=== PATIENT | male | born 1985 | race Caucasian/White ===

== ENCOUNTER 2017-08-06 10:58 | Emergency (ER) | payer OTHER ==
[2017-08-06] MEDS ORDERED: NS 1,000 ML IV ONE ×3 (11:15→11:49)
[2017-08-06] MEDS ORDERED: ONDANSETRON 4 MG/2 ML VIAL IVP ONE (11:15)
--- NOTE | 2017-08-06 11:18 | EDPHY ---
H & P Time Seen by Provider: 08/06/17 11:18 HPI/ROS: Chief complaint. Abdominal pain HPI. 31-year-old male history of Crohn's presents with nausea vomiting diarrhea and abdominal pain for 2 days. His last Crohn's flare-up was 18 months ago. He is not on any medication. He has periumbilical crampy type pain. No radiation. No urinary symptoms other than decreased urination. No chest discomfort or shortness of breath. No fever. No blood in the stool ROS Constitutional. no fever/chills, no weakness Eyes. no problems with vision ENT. no sore throat, no nasal drainage Cardiovascular. no chest pain Respiratory. no shortness of breath, no cough Abdominal. Crampy mid abdominal pain with nausea vomiting and diarrhea . no problems urinating MS. no calf pain/swelling, no neck/back pain, no joint pain Skin. no rash Lymph. no swollen glands Neuro. no headache, no dizziness, no difficulty walking or with speech Past Medical/Surgical History: Crohn's disease, anxiety, TBI, appendectomy Social History: Single, nonsmoker, no alcohol Smoking Status: Current every day smoker Constitutional: Initial Vital Signs Temperature (C) 36.6 C 08/06/17 11:01 Heart Rate 84 08/06/17 11:01 Respiratory Rate 17 08/06/17 11:01 Blood Pressure 112/75 08/06/17 11:01 O2 Sat (%) 93 08/06/17 11:01 O2 Delivery Mode Room Air Allergies/Adverse Reactions: No Known Allergies Allergy (Verified 08/06/17 11:00) Home Medications: Medication Instructions Recorded Ondansetron Odt [Zofran Odt] 4 mg PO Q4PRN PRN #4 tab 08/06/17 Medical Decision Making Procedures: IV normal saline Patient is given 2 L of saline Dilaudid and Zofran IV ED Course/Re-evaluation: Re-evaluation 12:55 p.m.. Patient is stable and feeling much better. He and I discussed laboratory evaluation, treatment plan including criteria for return, importance of follow-up and further evaluation. He expresses understanding and agreement He has had 2 L of saline no further vomiting or diarrhea. He is taking oral ice chips and feels much better. Differential Diagnosis: This may well be gastroenteritis. No evidence of active infection or acute abdomen. It is possible certainly that this could be Crohn's disease. After hydration and medication patient is improved - Data Points Laboratory Results: Laboratory Results 08/06/17 11:24 08/06/17 11:24 08/06/17 08/06/17 11:24 11:24 WBC 6.25 10^3/uL 10^3/uL (3.80-9.50) RBC 5.20 10^6/uL 10^6/uL (4.40-6.38) Hgb 17.0 g/dL g/dL (13.7-17.5) Hct 47.0 % % (40.0-51.0) MCV 90.4 fL fL (81.5-99.8) MCH 32.7 pg pg (27.9-34.1) MCHC 36.2 g/dL g/dL (32.4-36.7) RDW 13.2 % % (11.5-15.2) Plt Count 263 10^3/uL 10^3/uL (150-400) MPV 9.8 fL fL (8.7-11.7) Neut % (Auto) 53.4 % % (39.3-74.2) Lymph % (Auto) 36.8 % % (15.0-45.0) [place] % (Auto) 7.8 % % (4.5-13.0) Eos % (Auto) 1.0 % % (0.6-7.6) Baso % (Auto) 0.8 % % (0.3-1.7) Nucleat RBC Rel Count 0.0 % % (0.0-0.2) Absolute Neuts (auto) 3.34 10^3/uL 10^3/uL (1.70-6.50) Absolute Lymphs (auto) 2.30 10^3/uL 10^3/uL (1.00-3.00) Absolute Monos (auto) 0.49 10^3/uL 10^3/uL (0.30-0.80) Absolute Eos (auto) 0.06 10^3/uL 10^3/uL (0.03-0.40) Absolute Basos (auto) 0.05 10^3/uL 10^3/uL (0.02-0.10) Absolute Nucleated RBC 0.00 10^3/uL 10^3/uL (0-0.01) Immature Gran % 0.2 % % (0.0-1.1) Immature Gran # 0.01 10^3/uL 10^3/uL (0.00-0.10) Sodium 142 mEq/L mEq/L (135-145) Potassium 3.6 mEq/L mEq/L (3.3-5.0) Chloride 104 mEq/L mEq/L (97-110) Carbon Dioxide 25 mEq/l mEq/l (22-31) Anion Gap 13 mEq/L mEq/L (8-16) BUN 15 mg/dL mg/dL (7-23) Creatinine 0.9 mg/dL mg/dL (0.7-1.3) Estimated GFR > 60 Glucose 87 mg/dL mg/dL (70-100) Calcium 9.4 mg/dL mg/dL (8.5-10.4) Medications Given: Discontinued Medications Hydromorphone HCl (Dilaudid) 1 mg IVP EDNOW ONE Stop: 08/06/17 11:50 Last Admin: 08/06/17 11:58 Dose: 1 mg Sodium Chloride (Ns) 1,000 mls @ 0 mls/hr IV ONCE ONE PRN Reason: Wide Open Stop: 08/06/17 11:16 Last Admin: 08/06/17 11:29 Dose: 1,000 mls Sodium Chloride (Ns) 1,000 mls @ 0 mls/hr IV EDNOW ONE; Wide Open PRN Reason: Protocol Stop: 08/06/17 11:50 Last Admin: 08/06/17 11:58 Dose: Not Given Sodium Chloride (Ns) 1,000 mls @ 0 mls/hr IV EDNOW ONE; Wide Open PRN Reason: Protocol Stop: 08/06/17 11:50 Last Admin: 08/06/17 11:57 Dose: 1,000 mls Ondansetron HCl (Zofran) 4 mg IVP EDNOW ONE Stop: 08/06/17 11:16 Last Admin: 08/06/17 11:29 Dose: 4 mg Departure - Departure Disposition: Home, Routine, Self-Care Clinical Impression: Abdominal pain Qualifiers: Abdominal location: periumbilical Qualified Code(s): R10.33 - Periumbilical pain Condition: Good Instructions: Abdominal Pain (ED) Additional Instructions: Frequent, small sips fluids well nauseated. Gradual diet advancement. Zofran as needed for nausea and vomiting. Return for worsening symptoms. Recheck in 2 days if not continuing to improve Referrals: NONE *PRIMARY CARE P,. [Primary Care Provider] - As per Instructions Ja Quezada MD [Medical Doctor] - 2-3 days, if not improved Prescriptions: Ondansetron Odt [Zofran Odt] 4 mg PO Q4PRN PRN #4 tab PRN Reason: Nausea/Vomiting, Use 1st
[2017-08-06 11:43] LABS: PLATELET COUNT 263 10^3/uL (150-400)
[2017-08-06] MEDS ORDERED: HYDROmorphONE/DILAUDID 2 MG/ML INJ IVP ONE (11:49)
[2017-08-06] MEDS ORDERED: HYDROmorphONE/DILAUDID 1 MG/ML INJ ONE (11:56)
[2017-08-06 13:05] VITALS: BP 111/66
== END 2017-08-06 13:08 | disposition home or self-care (01) ==
DX: R10.33 Periumbilical pain (principal); F17.200 Nicotine dependence, unspecified, uncomplicated; E86.9 Volume depletion, unspecified; Z90.49 Acquired absence of other specified parts of digestive tract
CPT/HCPCS: 96374; J1170; J2405

== ENCOUNTER 2017-09-30 15:15 | Emergency (ER) | payer OTHER ==
[2017-09-30] MEDS ORDERED: NS 1,000 ML IV ONE (15:25)
[2017-09-30] MEDS ORDERED: fentaNYL 100 MCG/2 ML INJ IVP ONE (15:31)
[2017-09-30] MEDS ORDERED: ONDANSETRON 4 MG/2 ML VIAL IVP ONE (15:31)
--- NOTE | 2017-09-30 15:45 | EDPHY ---
General Time Seen by Provider: 09/30/17 15:36 Narrative: CHIEF COMPLAINT: Abdominal pain, Crohn's flare HISTORY OF PRESENT ILLNESS: Patient presents with complaints of abdominal pain. It is severe. Started suddenly this morning at 4:00 a.m.. Right lower quadrant and lower portion of the abdomen. Feels exactly like his previous incidence of a Crohn's exacerbation. Nausea and 1 episode of vomiting. No bloody emesis. No bloody stools. No trauma or injury. No previous abdominal surgery but does have recurrent flares of Crohn's. He is not on any anticoagulants, steroids or De margins. No other associated complaints or modifying factors. REVIEW OF SYSTEMS: Ten systems reviewed and are negative unless otherwise noted in the HPI [facility] PAST MEDICAL HISTORY: Crohn's, TBI PAST SURGICAL HISTORY: No abdominal surgeries SOCIAL HISTORY: Nonsmoker. Retired from the . FAMILY HISTORY: Noncontributory EXAMINATION General Appearance: Alert, no distress. Well-developed well-nourished. Head: normocephalic, atraumatic Eyes: Pupils equal and round, no conjunctival pallor or injection ENT, Mouth: Mucous membranes moist Neck: Normal inspection, supple, non-tender Respiratory: Lungs are clear to auscultation Cardiovascular: Regular rate and rhythm Gastrointestinal: Abdomen is soft and nondistended. There are bowel sounds in all 4 quadrants. There is significant tenderness in the suprapubic right lower quadrant with guarding. There is no tympany rigidity. No CVA tenderness. Back: non-tender, no bony abnormalities Neurological: A&O, nonfocal, normal gait Skin: Warm and dry, no rash. No petechiae or purpura Extremities: Nontender, no pedal edema Psychiatric: Mood and affect normal DIFFERENTIAL DIAGNOSES: Including but not limited to Crohn's exacerbation, diverticulitis, colitis, pneumoperitoneum, abscess MDM: 3:45 p.m. Acute abdominal pain with symptoms that are similar to his previous episodes of a Crohn exacerbation. He has nausea but no vomiting. He has no bloody stools or emesis. He has normal vital signs without any evidence of SIRS. He is in pain but in no acute distress. He requests that we do not performing CT imaging at this time. Will continue medication and laboratory studies prior. 4:00 p.m. Patient re-evaluated. His pain is refractory to the fentanyl this but he administered. IV Dilaudid ordered. 4:15 p.m. Patient re-evaluated. He says that his pain is significantly improved. He says that he does not want any CT imaging at this time as he feels much better. 4:40 p.m. Patient re-evaluated. He states he is feeling significantly better has minimal pain at this time. I did offer admission and further imaging by CT scan he declines. He states he would like to go home. We discussed risks, benefits and alternatives. This includes worsening of pain, deterioration, missed appendicitis, abscess, diverticulitis or colitis. I do feel it is reasonable for the patient home at this time with ED precautions. This includes return of pain, fever, vomiting, bloody stools or emesis. He will contact his established care at the [facility]. I have also provided the on-call physicians. Discharged home stable condition. SUPERVISION: Patient was independently examined, but I discussed the case with my secondary supervising physician Dr. Lucas - History Smoking Status: Current every day smoker - Objective Vital Signs: Initial Vital Signs Temperature (C) 98.8 F 09/30/17 15:17 Heart Rate 92 09/30/17 15:17 Respiratory Rate 18 09/30/17 15:17 Blood Pressure 132/107 H 09/30/17 15:17 O2 Sat (%) 98 09/30/17 15:17 O2 Delivery Mode Nasal Cannula O2 (L/minute) 3 Allergies/Adverse Reactions: No Known Allergies Allergy (Verified 09/30/17 15:16) Home Medications: Medication Instructions Recorded Ondansetron Odt [Zofran Odt 4 mg 4 mg PO Q6 PRN #12 tab 09/30/17 (*)] oxyCODONE HCL/ACETAMINOPHEN 1 each PO Q4-6PRN PRN #7 tablet 09/30/17 [Percocet 5-325 mg Tablet] Laboratory Results: Laboratory Results 09/30/17 15:29 09/30/17 15:29 09/30/17 09/30/17 15:29 15:29 WBC 12.21 10^3/uL H 10^3/uL (3.80-9.50) RBC 5.10 10^6/uL 10^6/uL (4.40-6.38) Hgb 16.8 g/dL g/dL (13.7-17.5) Hct 46.5 % % (40.0-51.0) MCV 91.2 fL fL (81.5-99.8) MCH 32.9 pg pg (27.9-34.1) MCHC 36.1 g/dL g/dL (32.4-36.7) RDW 12.6 % % (11.5-15.2) Plt Count 322 10^3/uL 10^3/uL (150-400) MPV 9.9 fL fL (8.7-11.7) Neut % (Auto) 92.5 % H % (39.3-74.2) Lymph % (Auto) 5.2 % L % (15.0-45.0) [place] % (Auto) 2.0 % L % (4.5-13.0) Eos % (Auto) 0.0 % L % (0.6-7.6) Baso % (Auto) 0.1 % L % (0.3-1.7) Nucleat RBC Rel Count 0.0 % % (0.0-0.2) Absolute Neuts (auto) 11.30 10^3/uL H 10^3/uL (1.70-6.50) Absolute Lymphs (auto) 0.63 10^3/uL L 10^3/uL (1.00-3.00) Absolute Monos (auto) 0.24 10^3/uL L 10^3/uL (0.30-0.80) Absolute Eos (auto) 0.00 10^3/uL L 10^3/uL (0.03-0.40) Absolute Basos (auto) 0.01 10^3/uL L 10^3/uL (0.02-0.10) Absolute Nucleated RBC 0.00 10^3/uL 10^3/uL (0-0.01) Immature Gran % 0.2 % % (0.0-1.1) Immature Gran # 0.03 10^3/uL 10^3/uL (0.00-0.10) Sodium 139 mEq/L mEq/L (135-145) Potassium 4.3 mEq/L mEq/L (3.3-5.0) Chloride 107 mEq/L mEq/L (97-110) Carbon Dioxide 21 mEq/l L mEq/l (22-31) Anion Gap 11 mEq/L mEq/L (8-16) BUN 13 mg/dL mg/dL (7-23) Creatinine 0.8 mg/dL mg/dL (0.7-1.3) Estimated GFR > 60 Glucose 133 mg/dL H mg/dL (70-100) Calcium 10.6 mg/dL H mg/dL (8.5-10.4) Total Bilirubin 1.2 mg/dL mg/dL (0.1-1.4) Conjugated Bilirubin 0.2 mg/dL mg/dL (0.0-0.5) Unconjugated Bilirubin 1.0 mg/dL mg/dL (0.0-1.1) AST 27 IU/L IU/L (17-59) ALT 50 IU/L IU/L (21-72) Alkaline Phosphatase 115 IU/L IU/L (38-126) Total Protein 8.0 g/dL g/dL (6.3-8.2) Albumin 4.9 g/dL g/dL (3.5-5.0) Lipase 69 IU/L IU/L (23-300) Medications Given: Discontinued Medications Fentanyl (Sublimaze) 100 mcg IVP EDNOW ONE Stop: 09/30/17 15:32 Last Admin: 09/30/17 15:35 Dose: 100 mcg Hydromorphone HCl (Dilaudid) 1 mg IVP EDNOW ONE Stop: 09/30/17 16:01 Last Admin: 09/30/17 16:05 Dose: 1 mg Sodium Chloride (Ns) 1,000 mls @ 0 mls/hr IV ONCE ONE; Wide Open PRN Reason: Protocol Stop: 09/30/17 15:26 Last Admin: 09/30/17 15:29 Dose: 1,000 mls Ondansetron HCl (Zofran) 4 mg IVP EDNOW ONE Stop: 09/30/17 15:32 Last Admin: 09/30/17 15:35 Dose: 4 mg Departure - Departure Disposition: Home, Routine, Self-Care Clinical Impression: Acute abdominal pain Exacerbation of Crohn's disease Qualifiers: Digestive disease complication type: without complication Qualified Code(s): K50.90 - Crohn's disease, unspecified, without complications Condition: Good Instructions: Acute Abdominal Pain (ED), Crohn Disease (ED) Additional Instructions: 1. Medications as prescribed as needed for pain and nausea 2. Clear liquid diet, advance slowly as tolerated 3. ED precautions for return of pain, fever, vomiting, bloody stools or emesis. 4. Return to emergency department in 24 hr if you do not have complete resolution of your pain Referrals: Jj Camp MD [Medical Doctor] - As per Instructions Ja Quezada MD [Medical Doctor] - As per Instructions Stand Alone Forms: Work Excuse Prescriptions: Ondansetron Odt [Zofran Odt 4 mg (*)] 4 mg PO Q6 PRN #12 tab PRN Reason: Nausea/Vomiting, Use 1st oxyCODONE HCL/ACETAMINOPHEN [Percocet 5-325 mg Tablet] 1 each PO Q4-6PRN PRN #7 tablet PRN Reason: Pain, Breakthrough
[2017-09-30 15:46] LABS: PLATELET COUNT 322 10^3/uL (150-400)
[2017-09-30] MEDS ORDERED: HYDROmorphONE/DILAUDID 2 MG/ML INJ IVP ONE (16:00)
[2017-09-30 16:35] VITALS: BP 114/80
== END 2017-09-30 17:08 | disposition home or self-care (01) ==
DX: K50.90 Crohn's disease, unspecified, without complications (principal)
CPT/HCPCS: 96374; J1170; J2405; J3010

== ENCOUNTER 2017-12-01 13:37 | Emergency (ER) | payer OTHER ==
[2017-12-01] MEDS ORDERED: NS 1,000 ML IV ONE ×2 (14:17→14:23)
[2017-12-01] MEDS ORDERED: HALOPERIDOL LACT 5 MG/ML INJ IVP ONE (14:23)
[2017-12-01] MEDS ORDERED: KETAMINE 200 MG/20 ML VIAL IVP ONE (14:23)
--- NOTE | 2017-12-01 14:23 | EDPHY ---
H & P Stated Complaint: HX CROHNS/N/V Time Seen by Provider: 12/01/17 14:16 HPI/ROS: CHIEF COMPLAINT: "My Crohn's is flared up" HISTORY OF PRESENT ILLNESS: 32-year-old male followed at the [facility], history of Crohn's disease, remote history of appendectomy, via private vehicle complaining of right-sided abdominal pain for the past 24 hr with associated nausea, vomiting. No hematemesis. No coffee- ground emesis. Bowel movements normal with no melena or hematochezia. No abdominal or other trauma. He is awaiting scheduling for upper and lower endoscopy. No testicular pain. No urinary abnormality PRIMARY CARE PROVIDER:[facility] REVIEW OF SYSTEMS: 10 systems reviewed and negative with the exception of the elements mentioned in the history of present illness PAST MEDICAL & SURGICAL HISTORY: Crohn's disease. Appendectomy. SOCIAL HISTORY: Retired nonsmoker PHYSICAL EXAM (Prior to examination, patient consented to physical exam, hands were washed and my usual and customary physical exam procedures followed) 1) GENERAL: Well-developed, well-nourished, alert and oriented. Appears comfortable s. 2) HEAD: Normocephalic, atraumatic 3) HEENT: Pupils equal, round, reactive to light bilaterally. Sclera anicteric. Nasopharynx, oropharynx, clear, no lesions. Dry mucous membranes. 4) NECK: Full range of motion, no meningeal signs. 5) LUNGS: Clear auscultation bilaterally, no wheezes, no rhonchi, no retractions. 6) HEART: Regular rate and rhythm, no murmur, no heave, no gallop. 7) ABDOMEN: No guarding, tender to palpation right upper quadrant, negative Bourgeois's sign, negative McBurney's, negative Bourgeois's, negative Rovsing's, negative peritoneal sign, 8) MUSCULOSKELETAL: Moving all extremities, no focal areas of tenderness, no obvious trauma. No peripheral edema or discoloration. 9) BACK: No CVA tenderness, no midline vertebral tenderness, no fluctuance, no step-off, no obvious trauma, no visual or palpable abnormality. 10) SKIN: No rash, no petechiae. 11) Psychiatric: Patient is oriented X 3, there is no agitation. DIFFERENTIAL DIAGNOSIS: My differential diagnosis includes, but is not limited to, acute appendicitis, acute cholecystitis, bowel obstruction, acute pancreatitis, testicular torsion, gastritis and urinary tract infection. The patient understands that this diagnosis is provisional and can never be 100% accurate. This is a partial list of diagnoses considered. These considerations are based on history, physical exam, past history and reassessment. - Personal History Current Tetanus Diphtheria and Acellular Pertussis (TDAP): Yes - Medical/Surgical History Hx Asthma: No Hx Chronic Respiratory Disease: No Hx Diabetes: No Hx Cardiac Disease: No Hx Renal Disease: No Hx Cirrhosis: No Hx Alcoholism: No Hx HIV/AIDS: No Hx Splenectomy or Spleen Trauma: No Other PMH: Appendectomy,. TBI. anxiety. Crohns - Social History Smoking Status: Current every day smoker Constitutional: Initial Vital Signs Temperature (C) 37.4 C 12/01/17 13:44 Heart Rate 105 H 12/01/17 13:44 Respiratory Rate 22 H 12/01/17 13:44 Blood Pressure 140/89 H 12/01/17 13:44 O2 Sat (%) 99 12/01/17 13:44 O2 Delivery Mode Room Air Allergies/Adverse Reactions: No Known Allergies Allergy (Verified 12/01/17 13:43) Home Medications: Medication Instructions Recorded NK [No Known Home Meds] 12/01/17 Medical Decision Making ED Course/Re-evaluation: 2:22 p.m.: I reviewed the patient's old medical records. Will obtain diagnostic studies, administer alternatives to opioids. I saw this patient independently based on established practice protocols. Care of patient under supervision of secondary supervising physician Dr Cosme . 3:30 p.m.: Re-evaluation, sleeping. IV Haldol and ketamine have been administered. 3:44 p.m.: Re-evaluation, sleeping, easily woken, states that he is feeling "100% better" . He would like to be discharged. Re-examined abdomen which is soft no guarding no rebound. I think that acute surgical abdominal pathology is less than likely in this patient at this time. Doubt acute cholecystitis. I do not think that imaging studies are indicated at this time. Given my usual and customary abdominal precautions and instructions. Recommend he follow up at the [facility]. - Data Points Laboratory Results: Laboratory Results 12/01/17 14:20 12/01/17 14:20 12/01/17 12/01/17 14:20 14:20 WBC 9.66 10^3/uL H 10^3/uL (3.80-9.50) RBC 5.29 10^6/uL 10^6/uL (4.40-6.38) Hgb 17.5 g/dL g/dL (13.7-17.5) Hct 48.0 % % (40.0-51.0) MCV 90.7 fL fL (81.5-99.8) MCH 33.1 pg pg (27.9-34.1) MCHC 36.5 g/dL g/dL (32.4-36.7) RDW 13.0 % % (11.5-15.2) Plt Count 398 10^3/uL 10^3/uL (150-400) MPV 9.7 fL fL (8.7-11.7) Neut % (Auto) 85.2 % H % (39.3-74.2) Lymph % (Auto) 9.0 % L % (15.0-45.0) [place] % (Auto) 5.4 % % (4.5-13.0) Eos % (Auto) 0.0 % L % (0.6-7.6) Baso % (Auto) 0.1 % L % (0.3-1.7) Nucleat RBC Rel Count 0.0 % % (0.0-0.2) Absolute Neuts (auto) 8.23 10^3/uL H 10^3/uL (1.70-6.50) Absolute Lymphs (auto) 0.87 10^3/uL L 10^3/uL (1.00-3.00) Absolute Monos (auto) 0.52 10^3/uL 10^3/uL (0.30-0.80) Absolute Eos (auto) 0.00 10^3/uL L 10^3/uL (0.03-0.40) Absolute Basos (auto) 0.01 10^3/uL L 10^3/uL (0.02-0.10) Absolute Nucleated RBC 0.00 10^3/uL 10^3/uL (0-0.01) Immature Gran % 0.3 % % (0.0-1.1) Immature Gran # 0.03 10^3/uL 10^3/uL (0.00-0.10) Sodium 141 mEq/L mEq/L (135-145) Potassium 4.1 mEq/L mEq/L (3.3-5.0) Chloride 102 mEq/L mEq/L (97-110) Carbon Dioxide 21 mEq/l L mEq/l (22-31) Anion Gap 18 mEq/L H mEq/L (8-16) BUN 18 mg/dL mg/dL (7-23) Creatinine 0.9 mg/dL mg/dL (0.7-1.3) Estimated GFR > 60 Glucose 130 mg/dL H mg/dL (70-100) Calcium 11.1 mg/dL H mg/dL (8.5-10.4) Phosphorus 3.2 mg/dL mg/dL (2.5-4.5) Total Bilirubin 1.2 mg/dL mg/dL (0.1-1.4) Conjugated Bilirubin 0.3 mg/dL mg/dL (0.0-0.5) Unconjugated Bilirubin 0.9 mg/dL mg/dL (0.0-1.1) AST 19 IU/L IU/L (17-59) ALT 36 IU/L IU/L (21-72) Alkaline Phosphatase 102 IU/L IU/L (38-126) Total Protein 8.5 g/dL H g/dL (6.3-8.2) Albumin 5.2 g/dL H g/dL (3.5-5.0) Lipase 52 IU/L IU/L (23-300) Medications Given: Discontinued Medications Haloperidol Lactate (Haldol Injection) 2.5 mg IVP EDNOW ONE Stop: 12/01/17 14:24 Last Admin: 12/01/17 14:34 Dose: 2.5 mg Sodium Chloride (Ns) 1,000 mls @ 0 mls/hr IV ONCE ONE PRN Reason: Wide Open Stop: 12/01/17 14:18 Last Admin: 12/01/17 14:34 Dose: 1,000 mls Sodium Chloride (Ns) 1,000 mls @ 0 mls/hr IV ONCE ONE PRN Reason: Wide Open Stop: 09/30/18 14:24 Last Admin: 12/01/17 15:20 Dose: 1,000 mls Ketamine HCl (Ketamine) 15 mg IVP EDNOW ONE Stop: 12/01/17 14:24 Last Admin: 12/01/17 14:34 Dose: 15 mg Departure - Departure Disposition: Home, Routine, Self-Care Clinical Impression: Crohns disease Qualifiers: Gastrointestinal tract location: unspecified location Digestive disease complication type: without complication Qualified Code(s): K50.90 - Crohn's disease, unspecified, without complications Abdominal pain Qualifiers: Abdominal location: right upper quadrant Qualified Code(s): R10.11 - Right upper quadrant pain Condition: Good Instructions: Crohn Disease (ED), Acute Abdominal Pain (ED) Additional Instructions: Seek immediate medical attention if you develop new or worsening symptoms, if you develop fevers, chills, inability to tolerate oral intake or any other symptoms that concerns you. Referrals: Follow-up, at the [facility] [Other] - 2-3 days, call for appt.
[2017-12-01 14:31] LABS: PLATELET COUNT 398 10^3/uL (150-400)
[2017-12-01 16:04] VITALS: BP 101/64
== END 2017-12-01 16:03 | disposition home or self-care (01) ==
DX: K50.90 Crohn's disease, unspecified, without complications (principal); Z87.891 Personal history of nicotine dependence
CPT/HCPCS: 96374; J1630

== ENCOUNTER 2017-12-03 08:22 | Emergency (ER) | payer OTHER ==
[2017-12-03 09:40] LABS: PLATELET COUNT 319 10^3/uL (150-400)
--- NOTE | 2017-12-03 09:52 | EDPHY ---
General Time Seen by Provider: 12/03/17 09:48 Narrative: CHIEF COMPLAINT: Abdominal pain, Crohn's flare HISTORY OF PRESENT ILLNESS: Patient presents by private vehicle with complaints of abdominal pain and Crohn' s flare. He states that he has had abdominal pain since December 01, at which time he was evaluated here. He was feeling better at time of discharge, with the symptoms return late last night. Pain is periumbilical. It is severe , constant and 10/10. It is the same as previous Crohn's flare pain. Associated with nausea. No constipation. No diarrhea. No bloody stools. No history of abdominal surgery for this. He states his cares at the [facility] including GI. He reports CT scan several weeks ago. He reports pending further evaluation for preventive medication for this but no current therapy. No other associated complaints or modifying factors REVIEW OF SYSTEMS: 10 systems were reviewed and negative with the exception of the elements mentioned in the history of present illness. PCP: [facility] SPECIALISTS: [facility] PAST MEDICAL HISTORY: Crohn's PAST SURGICAL HISTORY: No abdominal surgical history SOCIAL HISTORY: Nonsmoker. Lives independently FAMILY HISTORY: Noncontributory EXAMINATION: General Appearance: Alert, no distress. Appears to be in discomfort. Conversing in full sentences. Head: normocephalic, atraumatic Eyes: Pupils equal and round, no conjunctival pallor or injection ENT, Mouth: Mucous membranes moist Neck: Normal inspection, supple, non-tender Respiratory: Lungs are clear to auscultation Cardiovascular: Regular rate and rhythm Gastrointestinal: Abdomen is soft and nondistended. There is tenderness in the periumbilical region. There is tenderness in the upper quadrants. No lower quadrant tenderness. No guarding. No tympany. No rigidity. No CVA tenderness. Bowel sounds are present. Back: non-tender, no bony abnormalities Neurological: A&O, nonfocal, normal gait Skin: Warm and dry, no rash Extremities: Nontender, no pedal edema Psychiatric: Mood and affect normal DIFFERENTIAL DIAGNOSES: Including but not limited to Crohn's exacerbation, colitis, diverticulitis, cholecystitis, cholelithiasis, pancreatitis, enteritis, appendicitis MDM: 9:50 a.m. Abdominal pain in a patient with stated history of Crohn's disease. I have evaluated this patient in the past and familiar with his care. He does appear to be in pain but has a nonsurgical abdominal examination at this time. I have ordered IV ketamine, IV promethazine IV Toradol as his renal function is within normal limits. He also has IV fluid ordered and I will re-evaluate shortly. 10:15 a.m. Lipase and liver function panel were all within normal limits as well. 11:05 a.m. Patient re-evaluated. Pain medication was administered 1 hr ago. At this time he states his pain is not improved. He is nauseated and vomited once since my last evaluation. I have ordered further medication. 11:45 a.m. Patient has received his repeat dose medication and is starting to feel better. 12:50 p.m. Patient re-evaluated. He states that his pain is improved but not resolved. He is asking for 1 further dose of pain medication. I have ordered 1 final dose informed him that if he does not have improvement after this that he will require CT abdomen and pelvis and/or admission to the hospital 1:30 p.m. Patient re-evaluated. He is sitting on the side of the bed. He reports that he is feeling 100% better he states that he is no longer nauseated. He wants to go home at this time. He does not want any further medications, laboratory studies or any CT imaging. He would like to follow up with the [facility] and says that he has an ongoing process with this. He has ED precautions. He is discharged home stable condition. I discussed the case with the director case management for the possibility of narcotic caution for future visits. SUPERVISION: This patient was independently evaluated without direct involvement of or examination by the attending physician. - History Smoking Status: Current every day smoker - Objective Vital Signs: Initial Vital Signs Temperature (C) 98.2 F 12/03/17 08:24 Heart Rate 101 H 12/03/17 08:24 Respiratory Rate 22 H 12/03/17 08:24 Blood Pressure 132/86 H 12/03/17 08:24 O2 Sat (%) 95 12/03/17 08:24 O2 Delivery Mode Room Air O2 (L/minute) 2 Allergies/Adverse Reactions: No Known Allergies Allergy (Verified 12/01/17 13:43) Home Medications: Medication Instructions Recorded NK [No Known Home Meds] 12/01/17 Laboratory Results: Laboratory Results 12/03/17 09:15 12/03/17 09:15 12/03/17 12/03/17 12/03/17 09:15 09:15 09:15 WBC 7.92 10^3/uL 10^3/uL (3.80-9.50) RBC 5.01 10^6/uL 10^6/uL (4.40-6.38) Hgb 16.3 g/dL g/dL (13.7-17.5) Hct 45.3 % % (40.0-51.0) MCV 90.4 fL fL (81.5-99.8) MCH 32.5 pg pg (27.9-34.1) MCHC 36.0 g/dL g/dL (32.4-36.7) RDW 12.6 % % (11.5-15.2) Plt Count 319 10^3/uL 10^3/uL (150-400) MPV 9.9 fL fL (8.7-11.7) Neut % (Auto) 83.3 % H % (39.3-74.2) Lymph % (Auto) 11.7 % L % (15.0-45.0) [place] % (Auto) 4.2 % L % (4.5-13.0) Eos % (Auto) 0.0 % L % (0.6-7.6) Baso % (Auto) 0.5 % % (0.3-1.7) Nucleat RBC Rel Count 0.0 % % (0.0-0.2) Absolute Neuts (auto) 6.60 10^3/uL H 10^3/uL (1.70-6.50) Absolute Lymphs (auto) 0.93 10^3/uL L 10^3/uL (1.00-3.00) Absolute Monos (auto) 0.33 10^3/uL 10^3/uL (0.30-0.80) Absolute Eos (auto) 0.00 10^3/uL L 10^3/uL (0.03-0.40) Absolute Basos (auto) 0.04 10^3/uL 10^3/uL (0.02-0.10) Absolute Nucleated RBC 0.00 10^3/uL 10^3/uL (0-0.01) Immature Gran % 0.3 % % (0.0-1.1) Immature Gran # 0.02 10^3/uL 10^3/uL (0.00-0.10) ESR 6 MM/HR MM/HR (0-15) Sodium 139 mEq/L mEq/L (135-145) Potassium 3.5 mEq/L mEq/L (3.3-5.0) Chloride 103 mEq/L mEq/L (97-110) Carbon Dioxide 22 mEq/l mEq/l (22-31) Anion Gap 14 mEq/L mEq/L (8-16) BUN 15 mg/dL mg/dL (7-23) Creatinine 0.9 mg/dL mg/dL (0.7-1.3) Estimated GFR > 60 Glucose 104 mg/dL H mg/dL (70-100) Calcium 10.5 mg/dL H mg/dL (8.5-10.4) Total Bilirubin 1.4 mg/dL mg/dL (0.1-1.4) Conjugated Bilirubin 0.4 mg/dL mg/dL (0.0-0.5) Unconjugated Bilirubin 1.0 mg/dL mg/dL (0.0-1.1) AST 24 IU/L IU/L (17-59) ALT 40 IU/L IU/L (21-72) Alkaline Phosphatase 87 IU/L IU/L (38-126) Total Protein 7.4 g/dL g/dL (6.3-8.2) Albumin 4.7 g/dL g/dL (3.5-5.0) Lipase 45 IU/L IU/L (23-300) Medications Given: Discontinued Medications Diphenhydramine HCl (Benadryl Injection) 25 mg IVP EDNOW ONE Stop: 12/03/17 11:27 Last Admin: 12/03/17 11:53 Dose: 25 mg Hydromorphone HCl (Dilaudid) 1 mg IVP EDNOW ONE Stop: 12/03/17 12:57 Last Admin: 12/03/17 13:04 Dose: 1 mg Sodium Chloride (Ns) 1,000 mls @ 0 mls/hr IV EDNOW ONE; Wide Open PRN Reason: Protocol Stop: 12/03/17 09:59 Last Admin: 12/03/17 10:06 Dose: 1,000 mls Ketamine HCl (Ketamine) 16 mg IVP EDNOW ONE Stop: 12/03/17 09:57 Last Admin: 12/03/17 10:06 Dose: 16 mg Ketorolac Tromethamine (Toradol) 30 mg IVP EDNOW ONE Stop: 12/03/17 09:57 Last Admin: 12/03/17 10:08 Dose: 30 mg Morphine Sulfate (Morphine) 6 mg IVP EDNOW ONE Stop: 12/03/17 11:27 Last Admin: 12/03/17 11:53 Dose: 6 mg Ondansetron HCl (Zofran) 4 mg IVP EDNOW ONE Stop: 12/03/17 12:57 Last Admin: 12/03/17 13:04 Dose: 4 mg Promethazine HCl (Phenergan) 12.5 mg IVP ONCE ONE Stop: 12/03/17 09:58 Last Admin: 12/03/17 10:05 Dose: 12.5 mg Departure - Departure Disposition: Home, Routine, Self-Care Clinical Impression: Abdominal pain Qualifiers: Abdominal location: generalized Qualified Code(s): R10.84 - Generalized abdominal pain Crohns disease Qualifiers: Gastrointestinal tract location: unspecified location Digestive disease complication type: unspecified complication Qualified Code(s): K50.919 - Crohn' s disease, unspecified, with unspecified complications Condition: Good Instructions: Crohn Disease (ED), Acute Abdominal Pain (ED) Additional Instructions: 1. Continue previous medications 2. Contact the affairs for outpatient GI follow-up 3. Contact our on-call GI physician for outpatient follow-up with needed 4. ED precautions as discussed Referrals: Devante Naidu MD [Medical Doctor] - As per Instructions
[2017-12-03] MEDS ORDERED: KETAMINE 500 MG/10 ML VIAL IVP ONE (09:56)
[2017-12-03] MEDS ORDERED: KETOROLAC 30 MG/1 ML SDV IVP ONE (09:56)
[2017-12-03] MEDS ORDERED: PROMETHAZINE HCL 25 MG/ML INJ IVP ONE (09:57)
[2017-12-03] MEDS ORDERED: NS 1,000 ML IV ONE (09:58)
[2017-12-03] MEDS ORDERED: ONDANSETRON 4 MG/2 ML VIAL IVP ONE (12:56)
[2017-12-03] MEDS ORDERED: HYDROmorphONE/DILAUDID 1 MG/ML INJ IVP ONE (12:56)
[2017-12-03 13:48] VITALS: BP 102/66
--- NOTE | 2017-12-03 18:31 | ASMTCMCOM ---
CM Note CM Note Notes: Requested to assist with obtaining pt's most recent imaging medical records from the [facility]. Pt signed [facility] and this CM faxed request to the [facility] dept (o: [phone], f:[phone]). ED Provider Rusty Miller requested pt's records from the [facility] in order to verify pt's diagnosis of having Crohns. Per chart review: it has been questioned whether pt actually has Crohns or not (see past ED Provider Reports 09/21/09, 11/14/09, 01/20/16, earlier 2018 ED visits) and there have been concerns about pt presenting with narcotic seeking behavior (see mentioned ED Reports and ED CM Note 09/21/09). By the time the pt's most recent imaging report was received, pt had been discharged home and Rusty Miller had left for the evening. Pt's imaging report will be scanned into his e-chart. This CM to follow-up w/Rusty before officially placing a Narcotic Caution flag in pt's chart. Date Signed: 12/03/2017 06:31 PM Electronically Signed By:Josey Dominguez RN
== END 2017-12-03 13:46 | disposition home or self-care (01) ==
DX: R10.33 Periumbilical pain (principal); R11.0 Nausea; K50.00 Crohn's disease of small intestine without complications; F17.200 Nicotine dependence, unspecified, uncomplicated; E86.9 Volume depletion, unspecified
CPT/HCPCS: 96374; J1170; J1200; J1885; J2270; J2405; J2550

== ENCOUNTER 2018-01-13 08:33 | Emergency (ER) | payer OTHER ==
--- NOTE | 2018-01-13 08:35 | EDPHY ---
H & P Time Seen by Provider: 01/13/18 08:34 - Medical/Surgical History Hx Asthma: No Hx Chronic Respiratory Disease: No Hx Diabetes: No Hx Cardiac Disease: No Hx Renal Disease: No Hx Cirrhosis: No Hx Alcoholism: No Hx HIV/AIDS: No Hx Splenectomy or Spleen Trauma: No Other PMH: Appendectomy,. TBI. anxiety. Crohns - Social History Smoking Status: Current every day smoker Constitutional: Initial Vital Signs Temperature (C) 37.1 C 01/13/18 08:35 Heart Rate 123 H 01/13/18 08:35 Respiratory Rate 16 01/13/18 08:35 Blood Pressure 130/91 H 01/13/18 08:35 O2 Sat (%) 100 01/13/18 08:35 O2 Delivery Mode Room Air Allergies/Adverse Reactions: No Known Allergies Allergy (Verified 01/13/18 08:35) Home Medications: Medication Instructions Recorded methylPREDNISolone [Medrol Dose 1 each PO AD #1 ea 01/13/18 Jovani] Medical Decision Making ED Course/Re-evaluation: CHIEF COMPLAINT: Chron's flare up HISTORY OF PRESENT ILLNESS: The patient is a 32 y/o male with a history of Chron's disease, an appendectomy , and anxiety complaining of a Chron's flare up, onset 2 days ago. He states that he was diagnosed with Chron's 10 years ago, but he has never had any imaging studies. He is scheduled to see a physician at the [facility] for an endoscopy. He has had some non-bloody diarrhea. He is currently requesting pain medications. No chest pain, shortness of breath, urinary complaints, numbness, paresthesias, fevers. He was seen in this emergency department several times over the last several months, but has always left the emergency department prior to having imaging studies performed and after receiving opiate medication. REVIEW OF SYSTEMS: A comprehensive 10 system review of systems is otherwise negative aside from the elements mentioned in the history of present illness and medical decision making. PHYSICAL EXAM: HR, BP, O2 Sat, RR. Temp noted General Appearance: Alert, well hydrated, appropriate, and non-toxic appearing. Head: Atraumatic without scalp tenderness or obvious injury Eyes: Pupils equal, round, reactive to light and accommodation, EOMI, no trauma , no injection. Ears: Clear bilaterally, no perforation, normal landmarks Nose: Atraumatic, no rhinorrhea, clear. Throat: There is no erythema or exudates, no lesions, normal tonsils, mucus membranes moist. Neck: Supple, 2+ carotid upstroke, nontender, no lymphadenopathy. Respiratory: No retractions, no distress, no wheezes, and no accessory muscle use. Lungs are clear to auscultation bilaterally. Cardiovascular: Regular rate and rhythm, no murmurs, rubs, or gallops. Bilateral carotid, radial, dorsalis pedis, and posterior tibial pulses intact. Good capillary refill all extremities. Gastrointestinal: Abdomen is soft, nontender, non-distended, no masses, no rebound, no guarding, no peritoneal signs. Musculoskeletal: Normal active ROM of all extremities, atraumatic. Neurological: Alert, appropriate, and interactive. The patient has normal DTRs and non-focal cranial nerves, motor, sensory, and cerebellar exam. Skin: No rashes, good turgor, no nodules on palpation. Past medical history: Chron's disease, TIA, anxiety Past surgical history: Appendectomy Family history: Denies Social history: Lives in [place], single, employed DIAGNOSTICS/PROCEDURES/CRITICAL CARE TIME: Abdominopelvic CT: Normal; equivical thickening of the ileum DIFFERENTIAL DIAGNOSIS: The differential diagnosis for the patient's abdominal pain included but was not limited to Chron's disease, cholecystitis, hernias, testicular torsion, gastritis, and urinary tract infection. MEDICAL DECISION MAKING: The patient is a 32 y/o male with a history of Chron's disease, an appendectomy , and anxiety presenting with a Chron's flare up, onset 2 days ago. The diagnoses of Chorn's seems questionable as he claims he was diagnosed 10 years ago, but has never had any imaging. Additionally, the last two times he was here he has left before imaging studies could be performed, but after opiates were administered. On exam, he has a soft and benign abdomen. Abdominopelvic and CT ordered; 1L IV NS, 30mg IV Toradol, and 4mg IV Zofran administered. 0855: Patient's nurse reports that this patient is refusing the abdominopelvic CT scan. He also continues to change his story as to whether he had any imaging done in the past. 0856: Reassessed patient and discussed discharge as he does not want the CT scan. He is now agreeing to have the imaging studies performed. 0940: I spoke with Josey from case management who reports that this patient had an abdominopelvic CT on 10/11/17 at the [facility] which revealed questionable ileum thickening. 0945: I spoke with , radiologist, who reports that the abdominopelvic CT is normal; there may be an equivocal thickening of the ileum. 125mg IV Solu- Medrol administered. 0952: Reassessed patient and discussed laboratory and imaging findings. I have advised him to follow up at the [facility] for further abdominal work up. I have also prescribed him a Medrol-dose jovani and [place] for the imaging findings today. Return precautions provided; patient is comfortable with this plan. - Data Points Laboratory Results: Laboratory Results 01/13/18 08:45 01/13/18 08:45 01/13/18 01/13/18 01/13/18 08:59 08:45 08:45 WBC 12.03 10^3/uL H 10^3/uL (3.80-9.50) RBC 5.74 10^6/uL 10^6/uL (4.40-6.38) Hgb 18.7 g/dL H g/dL (13.7-17.5) POC Hgb 18.0 gm/dL H gm/dL (13.7-17.5) Hct 50.4 % % (40.0-51.0) POC Hct 53 % H % (40-51) MCV 87.8 fL fL (81.5-99.8) MCH 32.6 pg pg (27.9-34.1) MCHC 37.1 g/dL H g/dL (32.4-36.7) RDW 12.1 % % (11.5-15.2) Plt Count 412 10^3/uL H 10^3/uL (150-400) MPV 9.9 fL fL (8.7-11.7) Neut % (Auto) 78.2 % H % (39.3-74.2) Lymph % (Auto) 13.3 % L % (15.0-45.0) [place] % (Auto) 7.9 % % (4.5-13.0) Eos % (Auto) 0.0 % L % (0.6-7.6) Baso % (Auto) 0.3 % % (0.3-1.7) Nucleat RBC Rel Count 0.0 % % (0.0-0.2) Absolute Neuts (auto) 9.21 10^3/uL H 10^3/uL (1.70-6.50) Absolute Lymphs (auto) 1.56 10^3/uL 10^3/uL (1.00-3.00) Absolute Monos (auto) 0.93 10^3/uL H 10^3/uL (0.30-0.80) Absolute Eos (auto) 0.00 10^3/uL L 10^3/uL (0.03-0.40) Absolute Basos (auto) 0.03 10^3/uL 10^3/uL (0.02-0.10) Absolute Nucleated RBC Not Reported Immature Gran % 0.3 % % (0.0-1.1) Immature Gran # 0.04 10^3/uL 10^3/uL (0.00-0.10) Platelet Estimate Pending POC Sodium 142 mEq/L mEq/L (135-145) Sodium 143 mEq/L mEq/L (135-145) POC Potassium 3.4 mEq/L mEq/L (3.3-5.0) Potassium 3.9 mEq/L mEq/L (3.3-5.0) POC Chloride 108 mEq/L mEq/L (97-110) Chloride 104 mEq/L mEq/L (97-110) Carbon Dioxide 15 mEq/l L mEq/l (22-31) Anion Gap 24 mEq/L H mEq/L (6-14) POC BUN 32 mg/dL H mg/dL (7-23) BUN 32 mg/dL H mg/dL (7-23) Creatinine 1.1 mg/dL mg/dL (0.7-1.3) POC Creatinine 1.1 mg/dL mg/dL (0.7-1.3) Estimated GFR > 60 Glucose 105 mg/dL H mg/dL (70-100) POC Glucose 105 mg/dL H mg/dL (70-100) Calcium 11.5 mg/dL H mg/dL (8.5-10.4) Phosphorus Pending Total Bilirubin 3.0 mg/dL H mg/dL (0.1-1.4) Conjugated Bilirubin 0.8 mg/dL H mg/dL (0.0-0.5) Unconjugated Bilirubin 2.2 mg/dL H mg/dL (0.0-1.1) AST 26 IU/L IU/L (17-59) ALT 32 IU/L IU/L (21-72) Alkaline Phosphatase 125 IU/L IU/L (38-126) Total Protein 8.9 g/dL H g/dL (6.3-8.2) Albumin Pending Lipase 95 IU/L IU/L (23-300) Medications Given: Discontinued Medications Sodium Chloride (Ns) 1,000 mls @ 0 mls/hr IV EDNOW ONE; Wide Open PRN Reason: Protocol Stop: 01/13/18 08:45 Last Admin: 01/13/18 08:56 Dose: 1,000 mls Ketorolac Tromethamine (Toradol) 30 mg IVP EDNOW ONE Stop: 01/13/18 08:45 Last Admin: 01/13/18 08:56 Dose: 30 mg Ondansetron HCl (Zofran) 4 mg IVP EDNOW ONE Stop: 01/13/18 08:45 Last Admin: 01/13/18 08:56 Dose: 4 mg Point of Care Test Results: Chemistry 01/13/18 08:59 POC Sodium 142 mEq/L mEq/L (135-145) POC Potassium 3.4 mEq/L mEq/L (3.3-5.0) POC Chloride 108 mEq/L mEq/L (97-110) POC BUN 32 mg/dL H mg/dL (7-23) POC Creatinine 1.1 mg/dL mg/dL (0.7-1.3) POC Glucose 105 mg/dL H mg/dL (70-100) ISTAT H&H 01/13/18 08:59 POC Hgb 18.0 gm/dL H gm/dL (13.7-17.5) POC Hct 53 % H % (40-51) Departure - Departure Disposition: Home, Routine, Self-Care Clinical Impression: Abdominal pain Qualifiers: Abdominal location: generalized Qualified Code(s): R10.84 - Generalized abdominal pain Condition: Good Instructions: Acute Abdominal Pain (ED) Additional Instructions: 1. Take the Medrol-dose jovani and [place] as prescribed. 2. Follow-up with your physician at the [facility]. Make sure to bring the imaging studies from today's ER visit with you. 3. Return to the Emergency Department for fever, chest pain, shortness of breath , increasing pain or other worsening of condition. Referrals: [facility],. [Clinic] - As per Instructions Prescriptions: methylPREDNISolone [Medrol Dose Jovani] 1 each PO AD #1 ea Report Scribed for: Kevin Villegas Report Scribed by: Ana Jones Date of Report: 01/13/18 Time of Report: 08:35
[2018-01-13] MEDS ORDERED: KETOROLAC 30 MG/1 ML SDV IVP ONE (08:44)
[2018-01-13] MEDS ORDERED: NS 1,000 ML IV ONE (08:44)
[2018-01-13] MEDS ORDERED: ONDANSETRON 4 MG/2 ML VIAL IVP ONE (08:44)
[2018-01-13] MEDS ORDERED: IOPAMIDOL (ISOVUE-300) 100 ML BTL ONE (09:03)
[2018-01-13 09:08] LABS: PLATELET COUNT 412 10^3/uL (150-400)
[2018-01-13] MEDS ORDERED: methylPREDNISolone SOD SUCC 125 MG/2 ML VIAL IVP ONE (09:49)
[2018-01-13] MEDS ORDERED: HYDROmorphONE/DILAUDID 1 MG/ML INJ ONE (09:56)
[2018-01-13 10:00] VITALS: BP 106/89
[2018-01-13] MEDS: HYDROmorphONE/DILAUDID 2 MG/ML INJ IVP ONE ×2 (10:00→10:03)
== END 2018-01-13 10:29 | disposition home or self-care (01) ==
LOC: SUPCPDRO 08:33
DX: R10.84 Generalized abdominal pain (principal); K50.90 Crohn's disease, unspecified, without complications; E86.9 Volume depletion, unspecified; F17.200 Nicotine dependence, unspecified, uncomplicated
CPT/HCPCS: 82435-PO; 82565-PO; 82947-PO; 84132-PO; 84295-PO; 84520-PO; 85014-PO; 96374; J1170; J1885; J2405; J2930; Q9967

== ENCOUNTER 2018-03-13 15:27 | Emergency (ER) | payer OTHER ==
--- NOTE | 2018-03-13 16:12 | EDPHY ---
HPI/HX/ROS/PE/MDM Narrative: CHIEF COMPLAINT: "I have Crohn's disease and I haven't been able to eat or drink for 5 days" HISTORY OF PRESENT ILLNESS: The patient is a 32 y/o male with a history of PTSD and Crohn's disease not currently on immunosuppressants who arrives complaining of persistent vomiting, diarrhea, and diffuse abdominal pain for the last 5 days. He denies blood in his emesis or stool. [facility] and [facility]an and Bentyl currently. He reports these symptoms are the same as prior Crohn's flares. In our records for prior visits with similar symptoms there was some concern he does not have diagnosed Crohn's disease and the repeated visits were related to narcotic-seeking behavior. He had a narcotic caution placed on his record last year. He presented with similar symptoms in Jan [address] at that time showed equivocal thickening of the ileum and he was treated with Zofran, Toradol, and Solumedrol. He has a history of an appendectomy, but no resections. No fever, chills, chest pain, shortness of breath, palpitations, urinary complaints, headache, lightheadedness. REVIEW OF SYSTEMS: Aside from elements discussed in the HPI, a comprehensive 10-point review of systems was reviewed and is negative. PAST MEDICAL HISTORY: Crohn's disease - dx 10 years ago; PTSD SOCIAL HISTORY: Cigarette smoker, no alcohol use, marijuana use sometimes, denies illicit drug use. Prior medical records reviewed including ED visit 01/13/18 for similar symptoms. VITAL SIGNS: Reviewed by me GENERAL: Well-developed, well-nourished, hyperventilating and moaning. HEENT: Atraumatic. Eyes: No icterus, no injection. Mouth: moist mucous membranes. No erythema or lesions. Neck: supple with no adenopathy. LUNGS: Clear to auscultation bilaterally, no wheezes, rhonchi or rales. CARDIAC: Regular rate and rhythm, no rubs, murmurs or gallops. ABDOMEN: Soft, nontender, nondistended. BACK: No CVA tenderness. EXTREMITIES: No trauma. No edema. Range of motion is normal throughout. NEURO: Alert and oriented, grossly nonfocal. SKIN: Warm and dry, no rash. PSYCHIATRIC: Normal mentation, no agitation. Portions of this note were transcribed by a medical videographer. I personally performed a history, physical exam, medical decision making, and confirmed accuracy of information the transcribed note. ED Course: This is a 32 y/o male with a reported history of Crohn's disease not on immunosuppressants who presents with a 5-day history of vomiting, diarrhea, and abdominal pain. He is moaning and hyperventilating on exam, though this seems to improve significantly when I walk out of the room. His abdomen is soft. No indication for imaging at this time. Plan for IV, labs, UA, and symptomatic treatment. 1L IV NS, 4mg IV Zofran, and 30mg IV Toradol ordered. Patient continues to complain of pain and is requesting more medication. 10mg IV Reglan, 30mg IV Ketamine, 125mg IV Solumedrol, and 25mg IV Benadryl ordered. 1730: Reassessed patient. He says his pain is gone. His abdomen remains soft. He reports his medical care is at the [facility] and he's had a colonoscopy and biopsy there to confirm he has Crohn's disease. - Data Points Laboratory Results: Laboratory Results 03/13/18 15:56 03/13/18 15:56 03/13/18 03/13/18 03/13/18 17:20 15:56 15:56 WBC 10.55 10^3/uL H 10^3/uL (3.80-9.50) RBC 5.50 10^6/uL 10^6/uL (4.40-6.38) Hgb 17.9 g/dL H g/dL (13.7-17.5) Hct 50.4 % % (40.0-51.0) MCV 91.6 fL fL (81.5-99.8) MCH 32.5 pg pg (27.9-34.1) MCHC 35.5 g/dL g/dL (32.4-36.7) RDW 13.2 % % (11.5-15.2) Plt Count 434 10^3/uL H 10^3/uL (150-400) MPV 10.0 fL fL (8.7-11.7) Neut % (Auto) 74.6 % H % (39.3-74.2) Lymph % (Auto) 17.0 % % (15.0-45.0) [place] % (Auto) 7.2 % % (4.5-13.0) Eos % (Auto) 0.5 % L % (0.6-7.6) Baso % (Auto) 0.5 % % (0.3-1.7) Nucleat RBC Rel Count 0.0 % % (0.0-0.2) Absolute Neuts (auto) 7.88 10^3/uL H 10^3/uL (1.70-6.50) Absolute Lymphs (auto) 1.79 10^3/uL 10^3/uL (1.00-3.00) Absolute Monos (auto) 0.76 10^3/uL 10^3/uL (0.30-0.80) Absolute Eos (auto) 0.05 10^3/uL 10^3/uL (0.03-0.40) Absolute Basos (auto) 0.05 10^3/uL 10^3/uL (0.02-0.10) Absolute Nucleated RBC 0.00 10^3/uL 10^3/uL (0-0.01) Immature Gran % 0.2 % % (0.0-1.1) Immature Gran # 0.02 10^3/uL 10^3/uL (0.00-0.10) Sodium 147 mEq/L H mEq/L (135-145) Potassium 3.7 mEq/L mEq/L (3.5-5.2) Chloride 110 mEq/L mEq/L (97-110) Carbon Dioxide 19 mEq/l L mEq/l (22-31) Anion Gap 18 mEq/L H mEq/L (6-14) BUN 20 mg/dL mg/dL (7-23) Creatinine 1.0 mg/dL mg/dL (0.7-1.3) Estimated GFR > 60 Glucose 96 mg/dL mg/dL (70-100) Calcium 11.4 mg/dL H mg/dL (8.5-10.4) Phosphorus 3.3 mg/dL mg/dL (2.5-4.5) Total Bilirubin 1.5 mg/dL H mg/dL (0.1-1.4) Conjugated Bilirubin 0.6 mg/dL H mg/dL (0.0-0.5) Unconjugated Bilirubin 0.9 mg/dL mg/dL (0.0-1.1) AST 19 IU/L IU/L (17-59) ALT 25 IU/L IU/L (21-72) Alkaline Phosphatase 112 IU/L IU/L (38-126) Total Protein 8.2 g/dL g/dL (6.3-8.2) Albumin 5.2 g/dL H g/dL (3.5-5.0) Lipase 84 IU/L IU/L (23-300) Urine Color DARIANA Urine Appearance CLEAR Urine pH 5.0 (5.0-7.5) Ur Specific Reading 1.035 H (1.002-1.030) Urine Protein 1+ H (NEGATIVE) Urine Ketones 2+ H (NEGATIVE) Urine Blood NEGATIVE (NEGATIVE) Urine Nitrate NEGATIVE (NEGATIVE) Urine Bilirubin Pending Urine Urobilinogen 4.0 EU H EU (0.2-1.0) Ur Leukocyte Esterase NEGATIVE (NEGATIVE) Urine RBC 1-3 /hpf /hpf (0-3) Urine WBC 1-3 /hpf /hpf (0-3) Ur Epithelial Cells NONE SEEN /lpf /lpf (NONE-1+) Urine Mucus 3+ /lpf H /lpf (NONE-1+) Urine Glucose NEGATIVE (NEGATIVE) Medications Given: Discontinued Medications Diphenhydramine HCl (Benadryl Injection) 25 mg IVP EDNOW ONE Stop: 03/13/18 17:06 Last Admin: 03/13/18 17:18 Dose: 25 mg Sodium Chloride (Ns) 1,000 mls @ 0 mls/hr IV EDNOW ONE; Wide Open PRN Reason: Protocol Stop: 03/13/18 16:20 Last Admin: 03/13/18 16:26 Dose: 1,000 mls Ketamine HCl (Ketamine) 30 mg IVP EDNOW ONE Stop: 03/13/18 17:05 Last Admin: 03/13/18 17:18 Dose: 30 mg Ketorolac Tromethamine (Toradol) 30 mg IVP EDNOW ONE Stop: 03/13/18 16:20 Last Admin: 03/13/18 16:27 Dose: 30 mg Metoclopramide HCl (Reglan Injection) 10 mg IVP EDNOW ONE Stop: 03/13/18 17:06 Last Admin: 03/13/18 17:18 Dose: 10 mg Ondansetron HCl (Zofran) 4 mg IVP EDNOW ONE Stop: 03/13/18 16:20 Last Admin: 03/13/18 16:25 Dose: 4 mg General Time Seen by Provider: 03/13/18 15:50 Initial Vital Signs: Initial Vital Signs Temperature (C) 36.8 C 03/13/18 15:37 Heart Rate 108 H 03/13/18 15:37 Respiratory Rate 24 H 03/13/18 15:37 Blood Pressure 191/97 H 03/13/18 15:37 O2 Sat (%) 99 03/13/18 15:37 O2 Delivery Mode Room Air Allergies/Adverse Reactions: No Known Allergies Allergy (Verified 03/13/18 15:37) Home Medications: Medication Instructions Recorded Zofran 03/13/18 predniSONE 20 - 40 mg PO DAILY 12 Days tab 03/13/18 Departure - Departure Disposition: Home, Routine, Self-Care Clinical Impression: Dehydration Crohns disease Qualifiers: Gastrointestinal tract location: unspecified location Digestive disease complication type: without complication Qualified Code(s): K50.90 - Crohn's disease, unspecified, without complications Condition: Good Instructions: Prednisone (By mouth), Crohn Disease (ED) Additional Instructions: 1. Take Prednisone as prescribed. 2. 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 You've been referred to a local physician if needed. 3. Return for worsening of condition. 4. Continue to use Bentyl as needed for pain. 5. You have also been given a prescription for Phenergan to use as needed for ongoing nausea and vomiting. Referrals: Devante Naidu MD [Medical Doctor] - As per Instructions Prescriptions: predniSONE 20 - 40 mg PO DAILY 12 Days tab Report Scribed for: Nicole Walker Report Scribed by: Mell Johnson Date of Report: 03/13/18 Time of Report: 17:33
[2018-03-13] MEDS ORDERED: ONDANSETRON 4 MG/2 ML VIAL IVP ONE (16:19)
[2018-03-13] MEDS ORDERED: NS 1,000 ML IV ONE (16:19)
[2018-03-13] MEDS ORDERED: KETOROLAC 30 MG/1 ML SDV IVP ONE (16:19)
[2018-03-13 16:27] LABS: PLATELET COUNT 434 10^3/uL (150-400)
[2018-03-13] MEDS ORDERED: KETAMINE 200 MG/20 ML VIAL IVP ONE (17:04)
[2018-03-13] MEDS ORDERED: METOCLOPRAMIDE 10 MG/2 ML VIAL IVP ONE (17:05)
[2018-03-13] MEDS ORDERED: methylPREDNISolone SOD SUCC 125 MG/2 ML VIAL IVP ONE (17:26)
[2018-03-13 18:11] VITALS: BP 114/84
== END 2018-03-13 18:10 | disposition home or self-care (01) ==
DX: K50.90 Crohn's disease, unspecified, without complications (principal); E86.0 Dehydration
CPT/HCPCS: 96374; J1200; J1885; J2405; J2765; J2930

== ENCOUNTER 2018-05-11 08:50 | Emergency (ER) | payer OTHER ==
[2018-05-11] MEDS ORDERED: ONDANSETRON 4 MG/2 ML VIAL IVP ONE (09:13)
[2018-05-11] MEDS ORDERED: NS 1,000 ML IV ONE (09:13)
[2018-05-11] MEDS ORDERED: PROMETHAZINE HCL 25 MG/ML INJ IVP ONE ×2 (09:37→12:11)
[2018-05-11] MEDS ORDERED: KETAMINE 500 MG/10 ML VIAL IVP ONE (09:38)
[2018-05-11] MEDS ORDERED: methylPREDNISolone SOD SUCC 125 MG/2 ML VIAL IVP ONE (09:39)
--- NOTE | 2018-05-11 11:42 | EDPHY ---
H & P Stated Complaint: crohns flare n/v/d Time Seen by Provider: 05/11/18 09:12 HPI/ROS: CHIEF COMPLAINT: Vomiting HISTORY OF PRESENT ILLNESS: This is a 32-year-old male with a history of Crohn' s disease for which she is taking Pentasa and budesonide he receives his care at the [facility]. He has been seen in this emergency department in the past with complaints related to Crohn's disease (his last visit was on 03/13/2018 ). At that time he was not taking medications for Crohn's and it was unclear whether his diagnosis had been definitively established. There has been a question about narcotic seeking behavior. He tells me that he had a colonoscopy performed about 3 months ago and was started on Crohn's medication at some point following that study. Today he presents complaining of abdominal pain, nausea and vomiting, small amount of diarrhea yesterday but no bowel movement today. He vomited his medications today. He has not been aware of fever. REVIEW OF SYSTEMS: A ten system review of systems was performed and is negative with the exception of the items mentioned in the HPI. Past medical history: Chron's disease PTSD Past surgical history: Appendectomy Social history: Receives care at the [facility] but lives in a [place] area. Smokes cigarettes, no alcohol, no illicits. Occasional marijuana. General Appearance: Alert. Vital signs reviewed. Afebrile. Eyes: Pupils equal and round, no conjunctival injection, no discharge. Anicteric. ENT, Mouth: Mucous membranes are moist, no oropharyngeal erythema or edema. Neck: No lymphadenopathy, supple. Respiratory: Lungs are clear to auscultation; no wheezes, rales, or rhonchi. Cardiovascular: Regular rate and rhythm; no murmur, rub, or gallop. Gastrointestinal: Abdomen is soft with mild to moderate diffuse tenderness, no masses or organomegaly, bowel sounds normal. No guarding. Skin: Warm and dry, no rashes on exposed skin, normal color. Back: Nontender to palpation over the thoracolumbar spine. No CVAT. Extremities: No lower extremity edema, no calf tenderness or swelling. Neurological: Alert and oriented. Moving all four extremities easily and equally. Psychiatric: Normal affect. No agitation. - Personal History Current Tetanus Diphtheria and Acellular Pertussis (TDAP): Yes - Medical/Surgical History Hx Asthma: No Hx Chronic Respiratory Disease: No Hx Diabetes: No Hx Cardiac Disease: No Hx Renal Disease: No Hx Cirrhosis: No Hx Alcoholism: No Hx HIV/AIDS: No Hx Splenectomy or Spleen Trauma: No Other PMH: Appendectomy,. TBI. anxiety. Crohns - Social History Smoking Status: Current every day smoker Constitutional: Initial Vital Signs Temperature (C) 37.1 C 05/11/18 08:57 Heart Rate 90 05/11/18 08:57 Respiratory Rate 18 05/11/18 08:57 Blood Pressure 117/85 H 05/11/18 08:57 O2 Sat (%) 98 05/11/18 08:57 O2 Delivery Mode Room Air Allergies/Adverse Reactions: No Known Allergies Allergy (Verified 05/11/18 08:55) Home Medications: Medication Instructions Recorded Ondansetron Odt [Zofran Odt 4 mg 4 mg PO Q6 PRN #8 tab 03/13/18 (RX)] Promethazine HCl [Phenergan 12.5mg 12.5 mg PO Q8 PRN #10 tablet 03/13/18 tab] Zofran 03/13/18 predniSONE 20 - 40 mg PO DAILY 12 Days tab 03/13/18 Budesonide 05/11/18 Pentasa 250 mg (*) 05/11/18 Medical Decision Making ED Course/Re-evaluation: Patient underwent serial evaluations. His abdomen remains soft with diffuse tenderness, no peritoneal signs. He initially received IV Benadryl, IV Phenergan, and IV ketamine. He slept for over an hour and awoke stating that he was feeling better. He then tried ice chips but reported vomiting. When I have looked at the cups in to which he is vomiting they contain clear liquid-- not like stomach contents or partially digested food, but more like saliva. He was given a 2nd dose of Phenergan IV 12.5 mg. No further vomiting but he continues to complain of pain. In the past his records have indicated that he might be seeking pain medication. That impression was based upon the fact that his Crohn's disease had not been definitively diagnosed. It seems that he has been fully evaluated at the [facility] and does carry a diagnosis of Crohn's disease, for which he is taking medications. He has asked me for Dilaudid twice. He has not achieved pain relief with the above measures and I agreed to give him a dose of IV Dilaudid. Shortly after he received the IV Dilaudid he stated that he felt better and asked to leave the emergency department. I consider this a red flag in terms of drug-seeking. Differential Diagnosis: I considered a differential diagnosis that includes but is not limited to Crohn' s flare, viscus perforation, intra-abdominal abscess, cholecystitis, gastroenteritis, pancreatitis. - Data Points Medications Given: Discontinued Medications Diphenhydramine HCl (Benadryl Injection) 25 mg IVP EDNOW ONE Stop: 05/11/18 09:39 Last Admin: 05/11/18 09:46 Dose: 25 mg Hydromorphone HCl (Dilaudid) 1 mg IVP EDNOW ONE Stop: 05/11/18 13:09 Last Admin: 05/11/18 13:18 Dose: 1 mg Sodium Chloride (Ns) 1,000 mls @ 0 mls/hr IV EDNOW ONE; Wide Open PRN Reason: Protocol Stop: 05/11/18 09:14 Last Admin: 05/11/18 09:16 Dose: 1,000 mls Ketamine HCl (Ketamine) 13.2 mg 0.2 mg/kg (13.2 mg) IVP EDNOW ONE Stop: 05/11/18 09:39 Last Admin: 05/11/18 09:48 Dose: 13.2 mg Methylprednisolone Sodium Succinate (Solu-Medrol) 125 mg IVP EDNOW ONE Stop: 05/11/18 09:40 Last Admin: 05/11/18 09:47 Dose: 125 mg Ondansetron HCl (Zofran) 4 mg IVP EDNOW ONE Stop: 05/11/18 09:14 Last Admin: 05/11/18 09:15 Dose: 4 mg Promethazine HCl (Phenergan) 12.5 mg IVP EDNOW ONE Stop: 05/11/18 09:38 Last Admin: 05/11/18 09:45 Dose: 12.5 mg Promethazine HCl (Phenergan) 12.5 mg IVP ONCE ONE Stop: 05/11/18 12:12 Last Admin: 05/11/18 12:13 Dose: 12.5 mg Departure - Departure Disposition: Home, Routine, Self-Care Clinical Impression: Abdominal pain Qualifiers: Abdominal location: generalized Qualified Code(s): R10.84 - Generalized abdominal pain Vomiting Qualifiers: Vomiting type: unspecified Vomiting Intractability: non-intractable Nausea presence: with nausea Qualified Code(s): R11.2 - Nausea with vomiting, unspecified Condition: Good Instructions: Acute Nausea and Vomiting (ED), Acute Abdominal Pain (ED) Additional Instructions: [place]ue foods only today. I recommend that you follow up with [facility]--call tomorrow to see if you can be seen this week by him. Referrals: ATILIO LENZ [Other] - As per Instructions
[2018-05-11] MEDS ORDERED: PROMETHAZINE HCL 25 MG/ML INJ ONE (12:11)
[2018-05-11] MEDS ORDERED: HYDROmorphONE/DILAUDID 2 MG/ML INJ IVP ONE (13:08)
[2018-05-11 13:20] VITALS: BP 123/77
== END 2018-05-11 13:30 | disposition home or self-care (01) ==
DX: R10.84 Generalized abdominal pain (principal); R11.2 Nausea with vomiting, unspecified; E86.9 Volume depletion, unspecified; F17.200 Nicotine dependence, unspecified, uncomplicated; Z90.49 Acquired absence of other specified parts of digestive tract
CPT/HCPCS: 96374; J1170; J1200; J2405; J2550; J2930

== ENCOUNTER 2018-06-04 14:33 | Emergency (ER) | payer OTHER ==
--- NOTE | 2018-06-04 15:02 | EDPHY ---
H & P Time Seen by Provider: 06/04/18 14:54 - Medical/Surgical History Hx Asthma: No Hx Chronic Respiratory Disease: No Hx Diabetes: No Hx Cardiac Disease: No Hx Renal Disease: No Hx Cirrhosis: No Hx Alcoholism: No Hx HIV/AIDS: No Hx Splenectomy or Spleen Trauma: No Other PMH: Appendectomy,. TBI. anxiety. Crohns - Social History Smoking Status: Current every day smoker Constitutional: Initial Vital Signs Temperature (C) 36.8 C 06/04/18 15:01 Heart Rate 107 H 06/04/18 15:01 Respiratory Rate 16 06/04/18 15:01 Blood Pressure 130/87 H 06/04/18 15:01 O2 Sat (%) 94 06/04/18 15:01 O2 Delivery Mode Room Air Allergies/Adverse Reactions: No Known Allergies Allergy (Verified 06/04/18 15:01) Home Medications: Medication Instructions Recorded Ondansetron Odt [Zofran Odt 4 mg 4 mg PO Q6 PRN #8 tab 03/13/18 (RX)] Promethazine HCl [Phenergan 12.5mg 12.5 mg PO Q8 PRN #10 tablet 03/13/18 tab] Zofran 03/13/18 predniSONE 20 - 40 mg PO DAILY 12 Days tab 03/13/18 Budesonide 05/11/18 Pentasa 250 mg (*) 05/11/18 Medical Decision Making ED Course/Re-evaluation: CHIEF COMPLAINT: Psychiatric evaluation HISTORY OF PRESENT ILLNESS: The patient is a 32 y/o male with a history of anxiety complaining of increased anxiety and hearing voices after not taking his meds "for a while". He cannot tell me what medications he takes, but states he is a patient at the [facility]. Currently he feels very anxious. He denies homicidal or suicidal ideations. No fever, headache, body aches, lightheadedness, chest pain, heart palpitations, shortness of breath, cough, abdominal pain, urinary or bowel complaints, numbness, paresthesias. REVIEW OF SYSTEMS: A comprehensive 10 system review of systems is otherwise negative aside from elements mentioned in the history of present illness and medical decision making. PHYSICAL EXAM: General Appearance: Alert, well hydrated, appropriate, and non-toxic appearing. Head: Atraumatic without scalp tenderness or obvious injury Eyes: Pupils equal, round, reactive to light and accommodation, EOMI, no trauma , no injection. Ears: Clear bilaterally, no perforation, normal landmarks Nose: Atraumatic, no rhinorrhea, clear. Throat: There is no erythema or exudates, no lesions, normal tonsils, mucus membranes moist. Neck: Supple, 2+ carotid upstroke, nontender, no lymphadenopathy. Respiratory: No retractions, no distress, no wheezes, and no accessory muscle use. Lungs are clear to auscultation bilaterally. Cardiovascular: Regular rate and rhythm, no murmurs, rubs, or gallops. Bilateral carotid, radial, dorsalis pedis, and posterior tibial pulses intact. Good capillary refill all extremities. Gastrointestinal: Abdomen is soft, nontender, non-distended, no masses, no rebound, no guarding, no peritoneal signs. Musculoskeletal: Normal active ROM of all extremities, atraumatic. Neurological: Alert, appropriate, and interactive. The patient has normal DTRs and non-focal cranial nerves, motor, sensory, and cerebellar exam. Skin: No rashes, good turgor, no nodules on palpation. Psych: Appears agitated. Admits to hearing voices. No suicidal or homicidal ideations. Past medical history: TBI, anxiety, Crohns Past surgical history: Appendectomy Family history: Denies Social history: Lives in [place], single, not employed DIFFERENTIAL DIAGNOSIS: The differential diagnosis for the patient's depression included but was not limited to functional and schizoaffective disorder, major depression, situational depression, medication side effect, drugs, and alcohol abuse. MEDICAL DECISION MAKING: The patient is a 32 y/o male with a history of anxiety presenting with increased anxiety and hearing voices after not taking his meds "for a while". On exam he appears agitated and admits to hearing voices. No suicidal or homicidal ideations. Patient is cooperative and does not meet hold status. Patient is in no acute distress and is hemodynamically stable. We are awaiting psychiatric team's evaluation. Patient has known history of psychiatric disorders and is here for evaluation. 1mg PO Ativan administered. 1610: Patient is requesting to leave. We will provide him resources for [facility] followup. - Data Points Laboratory Results: Laboratory Results 06/04/18 15:01 06/04/18 15:01 06/04/18 06/04/18 15:01 15:01 WBC 9.86 10^3/uL H 10^3/uL (3.80-9.50) RBC 5.30 10^6/uL 10^6/uL (4.40-6.38) Hgb 16.8 g/dL g/dL (13.7-17.5) Hct 46.6 % % (40.0-51.0) MCV 87.9 fL fL (81.5-99.8) MCH 31.7 pg pg (27.9-34.1) MCHC 36.1 g/dL g/dL (32.4-36.7) RDW 12.6 % % (11.5-15.2) Plt Count 385 10^3/uL 10^3/uL (150-400) MPV 10.0 fL fL (8.7-11.7) Neut % (Auto) 70.8 % % (39.3-74.2) Lymph % (Auto) 20.8 % % (15.0-45.0) [place] % (Auto) 7.2 % % (4.5-13.0) Eos % (Auto) 0.8 % % (0.6-7.6) Baso % (Auto) 0.2 % L % (0.3-1.7) Nucleat RBC Rel Count 0.0 % % (0.0-0.2) Absolute Neuts (auto) 6.98 10^3/uL H 10^3/uL (1.70-6.50) Absolute Lymphs (auto) 2.05 10^3/uL 10^3/uL (1.00-3.00) Absolute Monos (auto) 0.71 10^3/uL 10^3/uL (0.30-0.80) Absolute Eos (auto) 0.08 10^3/uL 10^3/uL (0.03-0.40) Absolute Basos (auto) 0.02 10^3/uL 10^3/uL (0.02-0.10) Absolute Nucleated RBC 0.00 10^3/uL 10^3/uL (0-0.01) Immature Gran % 0.2 % % (0.0-1.1) Immature Gran # 0.02 10^3/uL 10^3/uL (0.00-0.10) Sodium 136 mEq/L mEq/L (135-145) Potassium 3.9 mEq/L mEq/L (3.5-5.2) Chloride 101 mEq/L mEq/L (97-110) Carbon Dioxide 19 mEq/l L mEq/l (22-31) Anion Gap 16 mEq/L H mEq/L (6-14) BUN 28 mg/dL H mg/dL (7-23) Creatinine 1.1 mg/dL mg/dL (0.7-1.3) Estimated GFR > 60 Glucose 99 mg/dL mg/dL (70-100) Calcium 11.1 mg/dL H mg/dL (8.5-10.4) Phosphorus Pending Salicylates < 1.0 mg/dL L mg/dL (2.0-20.0) Acetaminophen < 10 mcg/mL L mcg/mL (10-30) Ethyl Alcohol < 10 mg/dL mg/dL (0-10) Medications Given: Discontinued Medications Lorazepam (Ativan) 1 mg PO EDNOW ONE Stop: 06/04/18 15:40 Last Admin: 06/04/18 15:42 Dose: 1 mg Departure - Departure Disposition: Home, Routine, Self-Care Clinical Impression: Anxiety Condition: Good Instructions: Anxiety (ED) Additional Instructions: 1. Follow-up with your mental health provider as directed. 2. Return to the ED for thoughts of self-harm, racing thoughts or other concerns. Referrals: [facility],. [Clinic] - As per Instructions Report Scribed for: Kevin Villegas Report Scribed by: Ana Jones Date of Report: 06/04/18 Time of Report: 15:30
[2018-06-04 15:03] VITALS: BP 130/87
[2018-06-04] MEDS ORDERED: LORazepam 1 MG TAB PO ONE (15:39)
[2018-06-04 15:46] LABS: PLATELET COUNT 385 10^3/uL (150-400)
--- NOTE | 2018-06-05 15:20 | ASMTCMCOM ---
CM Note CM Note Notes: Late entry from ED visit yesterday, 06/04/18: Patient evidently brought himself to the ED stating that he was "looking for his daughter" when he presented to triage. Patient was brought back to the ED after stating that he was looking for help and acknowledged that he was "hearing voices". See ED report for details. CM was asked to meet wit patient prior to discharge to offer resources for follow up at the [facility]. This CM met with patient who appeared anxious and stated that he was still "hearing voices in his head". When asked, patient tells me that he does not take mental health medication but has been using "illegal substances". He admits to using methamphetamine and tells me that he last used 2 days ago, "but I've been up for a week or more." Patient states that he does see a doctor at the [facility] in [place], primarily for his Chrons disease and has not seen a psychiatrist or professional for over a year. I encouraged patient to seek help at [facility] crisi center or the [facility], stressing that he needs to sleep before he is going to feel better. Although initially hesitant, patient agrees to let me provide a taxi voucher to the crisis center at [facility]. This CM contacted Marco at the crisis center and discussed patient's interaction with me and my encouragement to go to the crisis center. Marco states that patient is appropriate to send over and will be expecting his arrival. Taxi voucher provided and security stayed with patient in the lobby until cab arrived Date Signed: 06/05/2018 03:19 PM Electronically Signed By:Latrice Nettles RN
== END 2018-06-04 16:00 | disposition left against medical advice (07) ==
DX: F41.9 Anxiety disorder, unspecified (principal); K50.90 Crohn's disease, unspecified, without complications
CPT/HCPCS: G0480

== ENCOUNTER 2018-06-05 01:31 | Inpatient (IN) | payer OTHER ==
--- NOTE | 2018-06-05 02:11 | EDPHY ---
H & P Stated Complaint: abd pain Time Seen by Provider: 06/05/18 02:11 HPI/ROS: HPI CHIEF COMPLAINT: Anxiety, nausea, vomiting. HISTORY OF PRESENT ILLNESS: 32-year-old male, history of schizophrenia, also methamphetamine abuse, recently using methamphetamine over past 2 days. Presents back to the emergency room for 2nd time tonight with acute anxiety, nausea, vomiting and hearing voices. He reports that his daughter is in [place] however he reports that multiple voices are telling him that his daughter is . Admits to methamphetamine earlier 2 days ago. Additionally reports that he was seen here earlier for anxiety and left. Now he is back. Worsening voices. Past Medical History: Significant medical history for anxiety, Crohn's disorder , traumatic brain injury, schizophrenia Past Surgical History: Appendectomy Social History: Methamphetamine abuse, homelessness Family History: Noncontributory ROS REVIEW OF SYSTEMS: 10 Systems were reviewed and negative with the exception of the elements mentioned in the history of present illness. Exam Constitutional nontoxic, much older than stated age, actively vomiting upon arrival triage nursing summary reviewed, vital signs reviewed, awake/alert. Vital signs stable Eyes normal conjunctivae and sclera, EOMI, PERRLA. HENT normal inspection, atraumatic, moist mucus membranes, no epistaxis, neck supple/ no meningismus, no raccoon eyes. Respiratory clear to auscultation bilaterally, normal breath sounds, no respiratory distress, no wheezing. Cardiovascular rate normal, regular rhythm, no murmur, no edema, distal pulses normal. Gastrointestinal soft, non-tender, no rebound, no guarding, normal bowel sounds, no distension, no pulsatile mass. Genitourinary no CVA tenderness. Musculoskeletal no midline vertebral tenderness, full range of motion, no calf swelling, no tenderness of extremities, no meningismus, good pulses, neurovascularly intact. Skin pink, warm, & dry, no rash, skin atraumatic. Neurologic awake, alert and oriented x 3, AAOx3, moves all 4 extremities equally, motor intact, sensory intact, CN II-XII intact, normal cerebellar, normal vision, normal speech. Psychiatric hearing voices. Paranoid. Heme/Lymph/Immune no lymphadenopathy. Differential Diagnosis: Includes but is not limited to in a particular order polysubstance abuse, methamphetamine abuse, underlying schizophrenia off medications, acute psychosis, drug intoxication, drug intoxication mood disorder , alcohol mood disorder Medical Decision Making: Plan for this patient patient actively vomiting here in emergency room patient received IV fluids, IV Ativan for anxiety 1 mg, IM Zyprexa 5 mg for paranoia. Check basic blood work, and re-evaluate. Re-evaluation: 0619AM: Patient re-evaluated this time. Has ongoing nausea, dry heaving at times. However sleepy. 0625AM: Patient was able to give us a urine sample. Dark Urine (dehydrated). Will give 3rd liter. 0654AM: Patient re-evaluated continues to be nauseous. He received 3 L of fluid. Plan for hospital admission for ongoing nausea dry heaving/vomiting I do believe he is dehydrated, additionally may be having nausea and vomiting due to his underlying anxiety, questionable cyclic vomiting syndrome, Crohn's disease. Patient's most likely cause of nausea vomiting underlying anxiety and dehydration, additionally hospital Crohn's disease causing vomiting. He has no significant abdominal pain on exam. His labs reviewed show a low bicarb and anion gap consistent with dehydration, his urine was very dark. He is getting 3 L fluid. IV Zofran. Plan for hospital admission today for nausea and vomiting and dehydration. The patient did not have a CT scan of the abdomen pelvis as abdomen is soft no peritoneal signs. I spoke with Dr. Beckett agrees to admit. Source: Patient - Personal History Current Tetanus/Diphtheria Vaccine: Yes Current Tetanus Diphtheria and Acellular Pertussis (TDAP): Yes - Medical/Surgical History Hx Asthma: No Hx Chronic Respiratory Disease: No Hx Diabetes: No Hx Cardiac Disease: No Hx Renal Disease: No Hx Cirrhosis: No Hx Alcoholism: No Hx HIV/AIDS: No Hx Splenectomy or Spleen Trauma: No Other PMH: Appendectomy,. TBI. anxiety. Crohns - Social History Smoking Status: Current every day smoker Constitutional: Initial Vital Signs Temperature (C) 36.4 C 06/05/18 01:32 Heart Rate 87 06/05/18 01:32 Respiratory Rate 18 06/05/18 01:32 Blood Pressure 134/75 H 06/05/18 01:32 O2 Sat (%) 100 06/05/18 01:32 O2 Delivery Mode Room Air O2 (L/minute) 6 Allergies/Adverse Reactions: No Known Allergies Allergy (Verified 06/05/18 01:35) Home Medications: Medication Instructions Recorded LORazepam [Ativan (*)] 0.5 mg PO Q8H PRN 06/05/18 Ondansetron Odt [Zofran Odt 4 mg 4 mg PO Q4HRS PRN #30 tab 06/06/18 (*)] Medical Decision Making - Data Points Laboratory Results: Laboratory Results 06/05/18 02:05 06/05/18 02:05 Medications Given: Sodium Chloride (Ns) 1,000 mls @ 150 mls/hr IV CONT KARIME Stop: 12/02/18 08:44 Last Admin: 06/05/18 22:17 Dose: 1,000 mls Lorazepam (Ativan) 0.5 mg PO Q8H PRN PRN Reason: Anxiety Stop: 12/02/18 10:03 Last Admin: 06/06/18 13:04 Dose: 0.5 mg Nicotine (Nicoderm Cq) 14 mg TD DAILY KARIME Stop: 12/02/18 21:29 Last Admin: 06/06/18 16:35 Dose: 14 mg Ondansetron HCl (Zofran) 4 mg IVP Q4HRS PRN PRN Reason: Nausea/Vomiting, Can't Take PO Stop: 12/02/18 08:44 Last Admin: 06/06/18 21:03 Dose: 4 mg Ondansetron HCl (Zofran Odt) 4 mg PO Q4HRS PRN PRN Reason: Nausea/Vomiting, Use 1st Stop: 12/02/18 08:44 Last Admin: 06/06/18 16:35 Dose: 4 mg Oxycodone HCl (Oxycodone Ir) 5 mg PO Q4HRS PRN PRN Reason: Pain, Severe Able to Take PO Stop: 06/15/18 13:37 Last Admin: 06/06/18 20:58 Dose: 5 mg Promethazine HCl (Phenergan) 12.5 mg IVP Q6HRS PRN PRN Reason: Nausea/Vomiting, Can't Take PO Stop: 12/02/18 08:45 Last Admin: 06/06/18 18:26 Dose: 12.5 mg Discontinued Medications Hydromorphone HCl (Dilaudid) 0.4 mg IVP ONCE ONE Stop: 06/05/18 13:39 Last Admin: 06/05/18 13:53 Dose: 0.4 mg Hydromorphone HCl (Dilaudid) 0.4 mg IVP ONCE ONE Stop: 06/06/18 21:16 Last Admin: 06/06/18 21:19 Dose: 0.4 mg Sodium Chloride (Ns) 1,000 mls @ 0 mls/hr IV ONCE ONE PRN Reason: Wide Open Stop: 06/05/18 02:19 Last Admin: 06/05/18 02:24 Dose: 1,000 mls Sodium Chloride (Ns) 1,000 mls @ 0 mls/hr IV ONCE ONE PRN Reason: Wide Open Stop: 06/05/18 02:42 Last Admin: 06/05/18 02:53 Dose: 1,000 mls Sodium Chloride (Ns) 1,000 mls @ 0 mls/hr IV ONCE ONE PRN Reason: Wide Open Stop: 06/05/18 06:26 Last Admin: 06/05/18 06:39 Dose: 1,000 mls Lorazepam (Ativan Injection) 1 mg IVP EDNOW ONE Stop: 06/05/18 02:18 Last Admin: 06/05/18 02:27 Dose: 1 mg Olanzapine (Zyprexa Injection) 5 mg IM EDNOW ONE Stop: 06/05/18 02:18 Last Admin: 06/05/18 02:27 Dose: 5 mg Ondansetron HCl (Zofran) 4 mg IVP EDNOW ONE Stop: 06/05/18 06:42 Last Admin: 06/05/18 06:44 Dose: 4 mg Departure - Departure Disposition: [facility] Acute Clinical Impression: Dehydration, Anxiety Vomiting Qualifiers: Vomiting type: unspecified Vomiting Intractability: intractable Nausea presence : with nausea Qualified Code(s): R11.2 - Nausea with vomiting, unspecified Condition: Good
[2018-06-05] MEDS ORDERED: OLANZapine 10 MG/2 ML VIAL IM ONE (02:17)
[2018-06-05] MEDS ORDERED: LORazepam 2 MG/ML INJ IVP ONE (02:17)
[2018-06-05] MEDS ORDERED: NS 1,000 ML IV ONE ×3 (02:18→06:25)
[2018-06-05 02:29] LABS: PLATELET COUNT 399 10^3/uL (150-400)
[2018-06-05] MEDS ORDERED: ONDANSETRON 4 MG/2 ML VIAL IVP ONE (06:41)
[2018-06-05 07:09] LABS: CREATINE KINASE 105 IU/L (0-224)
[2018-06-05] MEDS ORDERED: ACETAMINOPHEN 325 MG TAB PO PRN (08:45)
[2018-06-05] MEDS ORDERED: PROMETHAZINE HCL 25 MG TAB PO PRN (08:46)
--- NOTE | 2018-06-05 10:07 | PDGENHP ---
History and Physical - Chief Complaint N/V - History of Present Illness Clem Mora is a 32 yo M with a PMHx of Crohn's disease (not currently on medications), schizophrenia, methamphetamine abuse who presents to [facility] for nausea and vomiting. Patient is fairly lethargic at time of examination, answering questions in short answers and intermittently falling asleep. He reports that he started having n/v about 3-4 days ago which he attributes to increased stress with associated b/l lower quadrant abdominal pain. Pain is described as cramping, non-radiating, worse with nausea. His last BM was yesterday morning which was like "soft serve icecream" per patient. He denies diarrhea or constipation, fever/chills, hematemesis, hematochezia, LH/ dizziness. Per ED report, patient was hearing voices recently. He denies any auditory or visual hallucinations this morning. He does report that he uses meth and his last meth was 2 days ago. History Information - Allergies/Home Medication List Allergies/Adverse Reactions: No Known Allergies Allergy (Verified 06/05/18 01:35) Home Medications: LORazepam [Ativan (*)] 0.5 mg PO Q8H PRN 06/05/18 [Last Taken Unknown] I have personally reviewed and updated: family history, medical history, social history, surgical history - Past Medical History Additional medical history: crohn's disease, hx of methamphetamine abuse - Surgical History Reports: no pertinent surgical hx - Family History Positive for: non-pertinent - Social History Smoking Status: Current every day smoker Review of Systems Review of Systems: ROS: 10pt was reviewed & negative except for what was stated in HPI & below Physical Exam Physical Exam: Temp Pulse Resp BP Pulse Ox 36.6 C 74 16 122/89 H 95 06/05/18 08:30 06/05/18 08:30 06/05/18 08:30 06/05/18 08:30 06/05/18 08:30 Constitutional: uncomfortable, unkempt Eyes: PERRL Ears, Nose, Mouth, Throat: moist mucous membranes Cardiovascular: regular rate and rhythym Respiratory: no respiratory distress Gastrointestinal: soft, non-tender abdomen, No guarding, No rebound, No distension Skin: warm Neurologic: No AAOx3 Psychiatric: No interacting appropriately Lymph, Heme, Immunologic: No ecchymoses Lab Data & Imaging Review 06/05/18 02:05 06/06/18 04:38 WBC 8.51 10^3/uL (3.80-9.50) 06/05/18 02:05 RBC 5.24 10^6/uL (4.40-6.38) 06/05/18 02:05 Hgb 17.1 g/dL (13.7-17.5) 06/05/18 02:05 Hct 46.4 % (40.0-51.0) 06/05/18 02:05 MCV 88.5 fL (81.5-99.8) 06/05/18 02:05 MCH 32.6 pg (27.9-34.1) 06/05/18 02:05 MCHC 36.9 g/dL (32.4-36.7) H 06/05/18 02:05 RDW 12.2 % (11.5-15.2) 06/05/18 02:05 Plt Count 399 10^3/uL (150-400) 06/05/18 02:05 MPV 9.9 fL (8.7-11.7) 06/05/18 02:05 Neut % (Auto) 70.6 % (39.3-74.2) 06/05/18 02:05 Lymph % (Auto) 19.6 % (15.0-45.0) 06/05/18 02:05 [place] % (Auto) 8.3 % (4.5-13.0) 06/05/18 02:05 Eos % (Auto) 0.7 % (0.6-7.6) 06/05/18 02:05 Baso % (Auto) 0.4 % (0.3-1.7) 06/05/18 02:05 Nucleat RBC Rel Count 0.0 % (0.0-0.2) 06/05/18 02:05 Absolute Neuts (auto) 6.01 10^3/uL (1.70-6.50) 06/05/18 02:05 Absolute Lymphs (auto) 1.67 10^3/uL (1.00-3.00) 06/05/18 02:05 Absolute Monos (auto) 0.71 10^3/uL (0.30-0.80) 06/05/18 02:05 Absolute Eos (auto) 0.06 10^3/uL (0.03-0.40) 06/05/18 02:05 Absolute Basos (auto) 0.03 10^3/uL (0.02-0.10) 06/05/18 02:05 Absolute Nucleated RBC 0.00 10^3/uL (0-0.01) 06/05/18 02:05 Immature Gran % 0.4 % (0.0-1.1) 06/05/18 02:05 Immature Gran # 0.03 10^3/uL (0.00-0.10) 06/05/18 02:05 Sodium 136 mEq/L (135-145) 06/05/18 02:05 Potassium 3.8 mEq/L (3.5-5.2) 06/05/18 02:05 Chloride 97 mEq/L (97-110) 06/05/18 02:05 Carbon Dioxide 17 mEq/l (22-31) L 06/05/18 02:05 Anion Gap 22 mEq/L (6-14) H 06/05/18 02:05 BUN 26 mg/dL (7-23) H 06/05/18 02:05 Creatinine 1.0 mg/dL (0.7-1.3) 06/05/18 02:05 Estimated GFR > 60 06/05/18 02:05 Glucose 107 mg/dL (70-100) H 06/05/18 02:05 Calcium 11.2 mg/dL (8.5-10.4) H 06/05/18 02:05 Phosphorus 2.8 mg/dL (2.5-4.5) 06/05/18 02:05 Total Bilirubin 2.6 mg/dL (0.1-1.4) H 06/05/18 02:05 Conjugated Bilirubin 0.8 mg/dL (0.0-0.5) H 06/05/18 02:05 Unconjugated Bilirubin 1.8 mg/dL (0.0-1.1) H 06/05/18 02:05 AST 32 IU/L (17-59) 06/05/18 02:05 ALT 49 IU/L (21-72) 06/05/18 02:05 Alkaline Phosphatase 112 IU/L (38-126) 06/05/18 02:05 Creatine Kinase 105 IU/L (0-224) 06/05/18 02:05 Total Protein 7.9 g/dL (6.3-8.2) 06/05/18 02:05 Albumin 5.0 g/dL (3.5-5.0) 06/05/18 02:05 Lipase 78 IU/L (23-300) 06/05/18 02:05 Urine Opiates Screen NEGATIVE (NEGATIVE) 06/05/18 06:24 Urine Barbiturates NEGATIVE (NEGATIVE) 06/05/18 06:24 Ur Phencyclidine Scrn NEGATIVE (NEGATIVE) 06/05/18 06:24 Ur Amphetamine Screen NEGATIVE (NEGATIVE) 06/05/18 06:24 U Benzodiazepines Scrn NON-NEGATIVE (NEGATIVE) H 06/05/18 06:24 Urine Cocaine Screen NEGATIVE (NEGATIVE) 06/05/18 06:24 U Marijuana (THC) Screen NEGATIVE (NEGATIVE) 06/05/18 06:24 Ethyl Alcohol < 10 mg/dL (0-10) 06/05/18 02:05 Assessment & Plan Assessment: Nausea/Vomiting - Duration 3-4 days, not associated with diarrhea - In setting of known Crohn's disease (currently untreated) recent methamphetamine abuse - Abdominal exam S/NT/ND - Will order anti-emetics PRN - Continue IVF AG Metabolic Acidosis - AG 22 on admission, Bicarb 17 - UA ordered to evaluate for ketones - Likely starvation ketosis in setting of n/v, dehydration - Giving IVF - Continue to monitor BMP daily Hypercalcemia - Ca 11.2 on admission, in setting of dehydration - Will hydrate and repeat Ca in the AM Crohn's Disease - Reports not currently on treatment, Budesonide and Mesalamine on past meds - Not reporting diarrhea currently - Will hold off on acute treatment, will need f/u with PCP/GI Schizophrenia - Sp Olanzapine in ED - No currently taking any psych medications - Will consider psych consult when medical issues resolving Dehydration (Acute) - In setting of n/v as above - Continue IVF Methamphetamine Abuse - Last use 2 days ago - Will order PRN Benzodiazepines FEN: IVF, Clears DVT PPx: Low risk, SCDs Code: FULL Dispo: Admit to Observation
[2018-06-05] MEDS: PROMETHAZINE HCL 25 MG/ML INJ IVP PRN ×2 (10:24→19:42)
--- NOTE | 2018-06-05 13:22 | ASMTCMCOM ---
CM Note CM Note Notes: CM spoke with CM from ED who reported she met pt when he was in ED on 06/04. She reported he was provided taxi to crisis center through [facility]. Pt later came to ED here at [facility] and was admitted. CM attempted to meet with pt for initial contact but he was sleeping heavily. Per Latrice pt reported that he had been awake for about a week. Discharge needs TBD. CM to follow. Plan: TBD Date Signed: 06/05/2018 01:22 PM Electronically Signed By:NAVDEEP Keller
[2018-06-05] MEDS ORDERED: HYDROmorphONE/DILAUDID 1 MG/ML INJ IVP ONE (13:38)
[2018-06-05] MEDS: ONDANSETRON 4 MG/2 ML VIAL IVP PRN ×2 (13:52→21:23)
[2018-06-05] MEDS: oxyCODONE IR 5 MG TAB PO PRN (19:43)
[2018-06-05] MEDS: LORazepam 0.5 MG TAB PO PRN (19:44)
[2018-06-05] MEDS: NICOTINE 14 MG/24 HR PATCH TD SCH (22:17)
[2018-06-05] MEDS: NS 1,000 ML IV SCH (22:17)
[2018-06-06] MEDS: PROMETHAZINE HCL 25 MG/ML INJ IVP PRN ×3 (04:40→18:26)
[2018-06-06] MEDS: oxyCODONE IR 5 MG TAB PO PRN ×4 (04:41→20:58)
[2018-06-06] MEDS: LORazepam 0.5 MG TAB PO PRN ×2 (04:41→13:04)
[2018-06-06] MEDS: ONDANSETRON DISINTEGRATING 4 MG TAB PO PRN ×2 (11:51→16:35)
[2018-06-06] MEDS ORDERED: HYDROmorphONE/DILAUDID 1 MG/ML INJ IVP ONE ×2 (13:40→21:15)
[2018-06-06] MEDS: ONDANSETRON 4 MG/2 ML VIAL IVP PRN ×2 (13:54→21:03)
--- NOTE | 2018-06-06 13:54 | ASMTCMCOM ---
CM Note CM Note Notes: CM met with pt as she was likely to be discharged today. He said that he has Mental Health and PCP linkage at the [facility] and has an appt with his psychiatrist scheduled for Saturday at 8am. CM provided substance abuse educational resrouces, pt declined assistance making appts. Pt will likely be discharged independently once medically stable. CM available if needs arise. Plan: Independent. Date Signed: 06/06/2018 01:54 PM Electronically Signed By:NAVDEEP Keller
[2018-06-06] MEDS: NICOTINE 14 MG/24 HR PATCH TD SCH (16:35)
--- NOTE | 2018-06-06 17:10 | HOSPPROG ---
Hospitalist Progress Note Assessment/Plan: Nausea/Vomiting - Duration 3-4 days, not associated with diarrhea - In setting of known Crohn's disease (currently untreated) recent methamphetamine abuse, likely related to withdrawal - Abdominal exam S/NT/ND - Continue anti-emetics PRN - Continue IVF AG Metabolic Acidosis - AG 22 on admission, Bicarb 17 - Likely starvation ketosis in setting of n/v, dehydration - Resolved overnight with IVF Hypercalcemia - Ca 11.2 on admission, improved to 9.2 this AM s/p IVF Crohn's Disease - Reports not currently on treatment, Budesonide and Mesalamine on past meds - Not reporting diarrhea currently - Will hold off on acute treatment, will need f/u with PCP/GI Schizophrenia - Sp Olanzapine in ED - No currently taking any psych medications - Will consider psych consult when medical issues resolving Dehydration (Acute) - In setting of n/v as above - Continue IVF Methamphetamine Abuse - Last use 2 days ago - Will order PRN Benzodiazepines FEN: IVF, Clears DVT PPx: Low risk, SCDs Code: FULL Dispo: Pending clinical course Subjective: Pt reports nasuea this AM Objective: Vital Signs Temp Pulse Resp BP Pulse Ox 36.8 C 79 16 137/101 H 100 06/06/18 15:15 06/06/18 15:15 06/06/18 15:15 06/06/18 15:15 06/06/18 15:15 Laboratory Results 06/06/18 04:38 06/05/18 06/06/18 06/07/18 05:59 05:59 05:59 Intake Total 1450 Output Total 1250 300 Balance 200 -300 - Physical Exam Constitutional: uncomfortable, unkempt Eyes: PERRL Ears, Nose, Mouth, Throat: dry mucous membranes Cardiovascular: regular rate and rhythym Respiratory: no respiratory distress Gastrointestinal: soft, non-tender abdomen Skin: warm Musculoskeletal: full muscle strength Neurologic: AAOx3 Psychiatric: anxious ICD10 Worksheet Patient Problems: Problems Problem Status Onset Anxiety Acute Dehydration Acute Vomiting Acute Abdominal pain Acute Crohns disease Acute
[2018-06-06] MEDS: NS 1,000 ML IV SCH (23:04)
[2018-06-07] MEDS: NS 1,000 ML IV SCH ×2 (03:41→15:40)
[2018-06-07] MEDS: oxyCODONE IR 5 MG TAB PO PRN ×3 (08:42→20:24)
[2018-06-07] MEDS: ONDANSETRON DISINTEGRATING 4 MG TAB PO PRN (08:42)
[2018-06-07] MEDS: NICOTINE 14 MG/24 HR PATCH TD SCH (08:44)
[2018-06-07] MEDS: LORazepam 2 MG/ML INJ IVP PRN (12:23)
[2018-06-07] MEDS: PROMETHAZINE HCL 25 MG/ML INJ IVP PRN ×2 (12:23→20:24)
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
--- NOTE | 2018-06-07 17:43 | PDMN ---
Medical Necessity Medical necessity: [facility] M370 Vomiting, A-1 day: 32 yo presents w/ several days N/ V in setting of Chrohn's, schizophrenia and meth abuse. Initially OBS for workup/tx but pt cont vomiting 48 hours beyond obs care >2MN requiring ongoing IVF, IV antiemetics. Pt receiving IV Ativan for meth w/d. Change to IP status 06/07/18@1439 per MD order - Pt meets [facility] IP criteria med nec for vomiting that is severe or persistent w/ inability to maintain oral hydration.
[2018-06-07] MEDS: NICOTINE POLACRILEX 2 MG GUM B PRN (23:14)
[2018-06-07] MEDS: ONDANSETRON 4 MG/2 ML VIAL IVP PRN (23:33)
[2018-06-08] MEDS: oxyCODONE IR 5 MG TAB PO PRN ×3 (01:24→12:51)
[2018-06-08] MEDS: LORazepam 2 MG/ML INJ IVP PRN (01:24)
[2018-06-08] MEDS: NS 1,000 ML IV SCH ×2 (02:06→08:25)
[2018-06-08] MEDS: NICOTINE 14 MG/24 HR PATCH TD SCH (08:24)
[2018-06-08] MEDS: ONDANSETRON DISINTEGRATING 4 MG TAB PO PRN ×2 (08:35→12:52)
[2018-06-08 12:14] VITALS: BP 113/74
[2018-06-08] MEDS: NICOTINE POLACRILEX 2 MG GUM B PRN (15:00)
--- NOTE | 2018-06-08 15:11 | ASDISCHSUM ---
Discharge Information Plan Status:Home with No Needs Medically Cleared to Leave:06/08/2018 Discharge Date:06/08/2018 CM D/C Disposition:Home, Routine, Self-Care ADT D/C Disposition:Home, Routine, Self-Care Projected Discharge Date:06/08/2018 Transportation at D/C: Discharge Delay Reason: Follow-Up Date:06/08/2018 Discharge Slot: Final Diagnosis: Placement Information Patient Contact Information Contact Name:MARVA Relationship: Address: Home Phone: Work Phone: City: Alternate Phone: State/[place] Code: Email: Financial Information Financial Class:HMO and PPO Plans Primary Plan Desc:[employer] SAMMY Primary Plan Number:[id number] Secondary Plan Desc: Secondary Plan Number: Assessment Information LACE LACE Length of stay for Answers: 1 day current admission Comorbidities - select Answers: Other Notes: TBI; Crohn's disorder all that apply Social determinants Answers: History of substance abuse (ETOH, street drugs, prescription drugs, etc.) Homelessness (street, chcf) Mental health diagnosis (anxiety, depression, pers onality disorders, etc.) Score: 11 Date Signed: 06/08/2018 03:10 PM Electronically Signed By:Elza Torres RN [facility] CM Progress Note CM Note CM Note Notes: CM spoke with CM from ED who reported she met pt when he was in ED on 06/04. She reported he was provided taxi to crisis center through [facility]. Pt later came to ED here at [facility] and was admitted. CM attempted to meet with pt for initial contact but he was sleeping heavily. Per Latrice pt reported that he had been awake for about a week. Discharge needs TBD. CM to follow. Plan: TBD Date Signed: 06/05/2018 01:22 PM Electronically Signed By:NAVDEEP Keller [facility] Progress Note CM Note CM Note Notes: CM met with pt as she was likely to be discharged today. He said that he has Mental Health and PCP linkage at the [facility] and has an appt with his psychiatrist scheduled for Saturday at 8am. CM provided substance abuse educational resrouces, pt declined assistance making appts. Pt will likely be discharged independently once medically stable. CM available if needs arise. Plan: Independent. Date Signed: 06/06/2018 01:54 PM Electronically Signed By:NAVDEEP Keller Intervention Information
--- NOTE | 2018-06-08 15:12 | ASMTDCNOTE ---
Case Management Discharge Discharge Order Complete? Answers: Yes Patient to Obtain Answers: Independently Medications Transportation Arranged Answers: Family/Friends Family Notified Answers: Yes Discharge Comments Notes: Patient medically cleared for independent discharge. No current needs. CM available should needs arise. Date Signed: 06/08/2018 03:11 PM Electronically Signed By:Elza Torres RN
--- NOTE | 2018-06-08 15:25 | PDDCSUM ---
Discharge Summary Discharge Summary: Date of Admission: 06/05/2018 Date of Discharge: 06/08/2018 Discharge Diagnoses: Intractable nausea and vomiting, resolved Suspected cannabis hyperemesis syndrome Crohn disease, not in acute flare Acute dehydration, resolved Recent history of reported poly substance abuse Schizophrenia Admission Diagnoses: Nausea vomiting Anion gap metabolic acidosis Hypercalcemia Crohn disease Schizophrenia Acute dehydration Methamphetamine abuse Consultants: None. Hospital Course: The patient is a 32-year-old male with past medical history of schizophrenia who presented with intractable nausea and vomiting. He reported using methamphetamines and marijuana prior to developing the symptoms. He said he felt forced to use the drugs because he was under a great deal of stress. He reported that some people were trying to extort and threaten him. His story sounded paranoid and delusional. He admitted that he was not on regular antipsychotic medication, but that he has excellent follow up with the [facility] for [facility]. Conversation with his POA/NOK sister revealed that the patient has been able to convince his mental health providers at the [facility] that he does not need to be on psychiatric medications, yet he continues to have paranoid, delusional behavior which contributes to drug abuse and results in recurrent, similar hospital visits. Drug toxicity screen was negative in the ED. The patient continued to have symptoms for a few days. He claimed that the only thing that helps his abdominal pain, nausea, and vomiting was IV Phenergan with IV Dilaudid. However it was noted that taking warm showers greatly helped with his symptoms, which raises suspicion of cannabis hyperemesis syndrome. When the patient's symptoms resolved, he was discharged home with instructions to follow up with his mental health provider at the [facility] the next day. Physical Exam: Gen-no acute distress, alert, oriented. Ambulating. Condition: Stable. Discharged to: Home (patient stated he is going to stay in a hotel for the night) Pertinent tests/labs/imaging: Urine drug screen-positive for benzodiazepines. Medications: Please see med rec form. New medications include Zofran 4 mg ODT tablets #30 tabs. Acetaminophen 650 mg orally every 4 hours as needed for pain. Oxycodone 5 mg orally every 6 hours as needed for pain #8 tabs. Special instructions: Return to ED for worsening symptoms. Make sure you go to your Psychiatry appointment at the [facility] tomorrow. Please abstain from using drugs, including cannabis which is likely causing your nausea and vomiting. Follow up: [facility]. > 30 minutes of total time was spent on counseling and coordination of care for this patient's discharge.
== END 2018-06-08 15:39 | disposition home or self-care (01) | DRG 897 ==
LOC: F1N 08:48 → OBSVTOIN 06-07 14:39
PROVIDERS: ADMIT Internal Medicine; ATTEND Family Medicine
DX: F12.988 Cannabis use, unspecified with other cannabis-induced disorder (principal); K50.90 Crohn's disease, unspecified, without complications; R11.2 Nausea with vomiting, unspecified; E86.0 Dehydration; F20.9 Schizophrenia, unspecified; F15.10 Other stimulant abuse, uncomplicated; Z72.0 Tobacco use
CPT/HCPCS: 80305; 96374; G0378; G0480; J1170; J2060; J2405; J2550

== ENCOUNTER 2018-06-11 13:32 | Emergency (ER) | payer OTHER ==
[2018-06-11] MEDS ORDERED: NS 1,000 ML IV ONE (13:37)
[2018-06-11] MEDS ORDERED: LORazepam 2 MG/ML INJ IVP ONE (13:51)
[2018-06-11] MEDS ORDERED: PROMETHAZINE HCL 25 MG/ML INJ IVP ONE (13:51)
--- NOTE | 2018-06-11 13:54 | EDPHY ---
H & P Time Seen by Provider: 06/11/18 13:34 HPI/ROS: CHIEF COMPLAINT: Anxiety, hearing voices, abdominal pain HISTORY OF PRESENT ILLNESS: This is a 32-year-old male with a history of Crohn' s disease, schizophrenia, and anxiety. He also has a history of polysubstance abuse. He called for help from a whole [employer] store. He tells me that he is feeling extreme anxiety and hearing voices. He is so C8 vomiting with his anxiety and has vomited once today. He feels as if he is unable to eat. He is trying to drink liquids. He is not having diarrhea. He has diffuse abdominal pain. He states that he is compliant with his medications. He was admitted to this hospital on June 05 and discharged on June 08 because of persistent nausea and vomiting. At that time there is a question of possible cannabis hyperemesis. He . REVIEW OF SYSTEMS: A ten system review of systems was performed and is negative with the exception of the items mentioned in the HPI. Past medical history: Crohn's Anxiety Social history: Continues to smoke cigarettes. Denies use of alcohol. Denies any recent use of illicit substances. General Appearance: Alert. Vital signs reviewed. Tearful. Eyes: Pupils equal and round, no conjunctival injection, no discharge. Anicteric. ENT, Mouth: Mucous membranes are moist, no oropharyngeal erythema or edema. Neck: No lymphadenopathy, supple. Respiratory: Lungs are clear to auscultation; no wheezes, rales, or rhonchi. Cardiovascular: Regular rate and rhythm; no murmur, rub, or gallop. Gastrointestinal: Abdomen is soft and diffusely tender without guarding, no masses or organomegaly, bowel sounds normal. Skin: Warm and dry, no rashes on exposed skin, normal color. Back: Nontender to palpation over the thoracolumbar spine. No CVAT. Extremities: No lower extremity edema, no calf tenderness or swelling. Neurological: Alert and oriented. Moving all four extremities easily and equally. Psychiatric: Tearful affect. Not agitated, cooperative. He does not appear to be attending to outside stimulation. - Medical/Surgical History Hx Asthma: No Hx Chronic Respiratory Disease: No Hx Diabetes: No Hx Cardiac Disease: No Hx Renal Disease: No Hx Cirrhosis: No Hx Alcoholism: No Hx HIV/AIDS: No Hx Splenectomy or Spleen Trauma: No Other PMH: Appendectomy,. TBI. anxiety. Crohns - Social History Smoking Status: Current every day smoker Constitutional: Initial Vital Signs Temperature (C) 36.9 C 06/11/18 13:32 Heart Rate 108 H 06/11/18 13:32 Respiratory Rate 16 06/11/18 13:32 Blood Pressure 138/90 H 06/11/18 13:32 O2 Sat (%) 97 06/11/18 13:32 O2 Delivery Mode Room Air Allergies/Adverse Reactions: No Known Allergies Allergy (Verified 06/11/18 13:53) Home Medications: Medication Instructions Recorded Ondansetron Odt [Zofran Odt 4 mg 4 mg PO Q4HRS PRN #30 tab 06/06/18 (*)] Acetaminophen [Tylenol 325mg (*)] 650 mg PO Q4HRS PRN tab 06/08/18 Bentyl 10 MG (*) 06/11/18 Budesonide 06/11/18 Mesalamine 06/11/18 Pentasa 250 mg (*) 06/11/18 Phenergan 06/11/18 Medical Decision Making ED Course/Re-evaluation: 32-year-old male with history of schizophrenia and anxiety. He also has Crohn' s disease. He has been seen in this emergency department a few times within the last couple of months, twice by me. He was recently admitted to the hospital. In further discussion with him I learned that he was admitted to the psychiatric unit at the [facility] after being discharged from here on June 08. He stayed 1 day. He was discharged with some new medications. He cannot name with these medications are, but states that he has taken them. One of them is a psychiatric medication; he has taken 2 doses. We discussed the fact that it would not yet have had time to take effect. He reports significant anxiety and states that he is hearing voices. He was question twice about suicidality and homicidality. He denies suicidality. He states that he would like to go to the [facility] in [place] in talk with them further about how he is feeling. 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 He states that he will take a taxi to the repair shop, pickup his car, and possibly drive to the [facility] in [place]. He is aware of [facility] crisis [facility] and knows that he can go there if he would like to. I have not identified an emergency psychiatric condition that would require evaluation here. He he is neither suicidal nor homicidal. He is not gravely disabled. He had no vomiting in the emergency department. He received 1 dose of IV Ativan , 1 mg. Phenergan was ordered but he stated that he did not need this medication. Vital signs normal at [place]. Differential Diagnosis: I considered a differential diagnosis that includes but is not limited to Crohn' s exacerbation, dehydration, cannabis induced hyperemesis, anxiety, psychosis, paranoia, suicidality, and homicidality. - Data Points Laboratory Results: Laboratory Results 06/11/18 13:47 06/11/18 13:47 Medications Given: Discontinued Medications Sodium Chloride (Ns) 1,000 mls @ 0 mls/hr IV EDNOW ONE; Wide Open PRN Reason: Protocol Stop: 06/11/18 13:38 Last Admin: 06/11/18 13:49 Dose: 1,000 mls Lorazepam (Ativan Injection) 1 mg IVP EDNOW ONE Stop: 06/11/18 13:52 Last Admin: 06/11/18 14:14 Dose: 1 mg Promethazine HCl (Phenergan) 12.5 mg IVP EDNOW ONE Stop: 06/11/18 13:52 Last Admin: 06/11/18 14:16 Dose: Not Given Departure - Departure Disposition: Home, Routine, Self-Care Clinical Impression: Anxiety Crohns disease Qualifiers: Gastrointestinal tract location: unspecified location Digestive disease complication type: without complication Qualified Code(s): K50.90 - Crohn's disease, unspecified, without complications Condition: Good Instructions: Anxiety (ED) Additional Instructions: [facility], as you have been doing. Please continue with the medications that were prescribed to you recently. If you have thoughts of harming herself please seek immediate medical attention , either through the [facility], or through suicide hotline. Referrals: [facility],. [Clinic] - As per Instructions
[2018-06-11 14:17] LABS: PLATELET COUNT 288 10^3/uL (150-400)
[2018-06-11 15:57] VITALS: BP 117/77
--- NOTE | 2018-06-11 18:13 | ASMTCMCOM ---
CM Note CM Note Notes: Pt presented to the ED for anxiety. Spoke w/pt and he states he was just recently discharged yesterday from the [facility] mental health unit in [place]. Pt states his medications are in his vehicle and his vehicle is at a shop here in [place]. Pt states he was going to get a ride from his brother in law Brian ([phone]) back to the [facility] in [place] but then he had a panic attack at [employer]. This CM asked if pt could call Brian and see if he could pick him up the ED, take him to his vehicle to retrieve his medications and then take him to [place]. Pt called Brian and had CM speak to him as well. Brian stated he would like to help the pt get out to [place] but then eventually said he was busy and also told the pt that his vehicle is ready to be picked up. The pt states he plans on taking a cab to the shop where his vehicle is at and then taking his medications and then driving to the [facility] in [place]. This CM asked if he has a specific followup plan at the [facility] in [place] but he said "no I can't remember, my brain is not working and I am hearing voices." This CM offered to provide pt a cab voucher to [facility] but pt declined and said "No I want to go back to the [facility]." Pt states he is aware of the [facility] location and knows he can go there if he changes his mind about driving all the way to [place] in a snowstorm. Pt states he feels comfortable and safe with discharging and driving to the [facility] in [place]. See past CM Reports for additional background info re:pt's NARCOTIC CAUTION, high utilization, etc. Date Signed: 06/11/2018 06:12 PM Electronically Signed By:Josey Dominguez RN
== END 2018-06-11 15:57 | disposition home or self-care (01) ==
LOC: EDUNIT#
DX: F41.9 Anxiety disorder, unspecified (principal); K50.90 Crohn's disease, unspecified, without complications; E86.9 Volume depletion, unspecified; F20.9 Schizophrenia, unspecified; F17.210 Nicotine dependence, cigarettes, uncomplicated; Z87.820 Personal history of traumatic brain injury
CPT/HCPCS: 80305; 96374; J2060; J2550